=== PATIENT | male | born 1970 | race Caucasian/White ===

== ENCOUNTER 2023-08-08 11:03 | Inpatient (IN) ==
[2023-08-08 11:54] LABS: Basophils # (auto) 0.05 K/uL (0.00-0.20); Basophils % (auto) 0.6 %; Eosinophils # (auto) 0.19 K/uL (0.00-0.50); Eosinophils % (auto) 2.5 %; Hematocrit (blood only) 41.3 % (42.0-52.0); Hemoglobin 14.7 g/dl (14.0-18.0); Immature Granulocytes # (auto) 0.02 K/uL (0.01-0.20); Immature Granulocytes % (auto) 0.3 %; Lymphocytes # (auto) 1.62 K/uL (1.20-3.40); Mean Corpuscular Hemoglobin 31.6 pg (25.0-34.0); Mean Corpuscular Hgb Conc 35.6 g/dL (32.0-36.0); Mean Corpuscular Volume 88.8 fL (80.0-100.0); Mean Platelet Volume 10.8 fL (9.4-12.4); Monocytes # (auto) 0.67 K/uL (0.11-0.59); Monocytes % (auto) 8.7 %; Neutrophils # (auto) 5.16 K/uL (1.40-6.50); Neutrophils % (auto) 66.9 %; Platelet Count 229 K/uL (130-400); RDW Standard Deviation 38.7 fL (36.4-46.3); Red Blood Count 4.65 M/uL (4.70-6.10); White Blood Count 7.71 K/ul (4.8-10.8)
[2023-08-08 12:13] LABS: INR 0.9 (0.9-1.1); Partial Thromboplastin Ratio 0.9; Partial Thromboplastin Time 24.8 Seconds (21.0-31.0); Prothrombin Time 10.2 Seconds (9.0-12.0)
[2023-08-08 12:14] LABS: Alanine Aminotransferase 40 U/L (7-52); Albumin Globulin Ratio 1.6 (0.9-2); Albumin Level 4.5 gm/dl (3.4-5.0); Alkaline Phosphatase 74 U/L (34-104); Anion Gap 6 (3-11); Aspartate Aminotransferase 31 U/L (13-39); BUN Creatinine Ratio 18.8 (10-20); Bilirubin,Total 1.8 mg/dl (0.2-1.0); Blood Urea Nitrogen 16 mg/dl (6-23); Calcium 9.4 mg/dl (8.6-10.3); Carbon Dioxide 24 mmol/L (21-32); Chloride 105 mmol/L (98-107); Est GFR (African American) 113.7 ml/min; Est GFR (Non-African American) 98.1 ml/min; Globulin 2.9 gm/dl (2.5-4.0); Glucose 122 mg/dl (70-99(Fasting)); Lipase 69 U/L (11-82); Potassium 4.7 mmol/L (3.5-5.1); Sodium 135 mmol/L (136-145); Total Protein 7.4 gm/dl (6.0-8.3)
[2023-08-08 12:19] LABS: Troponin I High Sensitivity 6.7 pg/ml (0-20)
--- NOTE | 2023-08-08 13:04 | CT Scan Report ---
ABDOMEN AND PELVIS CT WITHOUT CONTRAST CT DOSE: 1112.58 mGy.cm HISTORY: mid abd pain, hx of umbilical hernia rep TECHNIQUE: Multiaxial CT images of the abdomen and pelvis were performed without contrast. A dose lo wering technique was utilized adhering to the principles of ALARA. COMPARISON STUDY: None. FINDINGS: There is a 3 mm nodule within the left lower lobe on image 45. The right lung base is clear . There are poststernotomy changes. Severe disc space narrowing at L5-S1. The unenhanced liver, splee n, pancreas, adrenal glands, and kidneys are unremarkable. No hydronephrosis. No retroperitoneal or p elvic lymphadenopathy. Mild calcified plaque within the normal caliber abdominal aorta. There is a 3 mm stone at the cystic duct on image 81. There is pericholecystic inflammatory change. Therefore, the se findings are consistent with an acute cholecystitis. Tiny fat-containing umbilical hernia. Minimal fat stranding deep to the umbilical hernia. This could be chronic or represent a developing small om ental infarct. Normal bladder. Suboptimal evaluation for bowel pathology due to the lack of intraveno us and oral contrast. However, there is no definite bowel wall thickening or obstruction. Normal appe ndix. IMPRESSION: 1. A 3 mm stone within the cystic duct with pericholecystic inflammatory change. Therefore, these fin dings are consistent with an acute cholecystitis. Surgical consultation recommended. 2. Minimal fat stranding deep to the tiny fat-containing umbilical hernia. This could be chronic or r epresent a developing small metal infarct. 3. No bowel wall thickening or obstruction. 4. Normal appendix. 5. A 3 mm indeterminate pulmonary nodule within the left lower lobe. Please refer to below summary of Fleischner criteria recommendations for follow-up of incidental CT n odules (Zeinab Clark, Guidelines for management of small pulmonary nodules detected on CT scans: A wan [place] from the Fleischner Society, Radiology 237: [phone].) SOLID NODULES Solitary nodule size: <6 mm * Low risk patients: no follow-up needed * high risk patients: optional CT at 12 months Solitary nodule size: 6-8 mm * Low risk patients: follow-up at 6-12 months, then consider further follow-up at 18-24 months * high risk patients: initial follow-up CT at 6-12 months and then at 18-24 months if no change Solitary nodule size: >8 mm * either low or high risk patients - consider follow-up CT at 3 months, and/or CT-PET, and/or biopsy Multiple nodules size: <6 mm * Low risk patients: no routine follow-up * high risk patients: optional CT at 12 months Multiple nodules size: 6-8 mm * Low risk patients: follow-up at 3-6 months, then consider further follow-up at 18-24 months * high risk patients: follow-up at 3-6 months, then at 18-24 months if no change Multiple nodules size: >8 mm * Low risk patients: follow-up at 3-6 months, then consider further follow-up at 18-24 months * high risk patients: follow-up at 3-6 months, then at 18-24 months if no change Note: newly detected indeterminate nodule in persons 35 years of age or older. * Low risk patients: minimal or absent history of smoking and/or other known risk factors * high risk patients: history of smoking or of other known risk factors (e.g. first degree relative with lung cancer, or exposure to asbestos, radon, uranium) * if a nodule up to 8 mm is partly solid or is ground glass further follow-up is required after 24 m onths to exclude possible slow growing adenocarcinoma (NIC) SUBSOLID NODULES Solitary pure ground-glass nodule * nodule size <6 mm - no CT follow-up required * nodule size >=6 mm - follow-up CT at 6-12 months, then every 2 years until 5 years Solitary part-solid nodule * nodule size <6 mm - no CT follow-up required * nodule size >=6 mm - follow-up CT at 3-6 months. If unchanged, and solid component remains <6 mm, then annual follow-up for 5 years Multiple subsolid nodules * nodule size <6 mm - follow-up CT at 3-6 months, consider further follow-up at 2 and 4 years if sta ble * nodule size >=6 mm - follow-up CT at 3-6 months, subsequent management based on the most suspiciou s nodule(s) ACT 112: Positive. There are findings on this exam that require communication between the performing entity and the patient following Patient Test Result Information Act ([place] Act 112) guidelines. Electronically signed by: Glenroy Chang M.D. 08/08/2023 1:02 PM
[2023-08-08] MEDS ORDERED: cefOXitin 2,000 MG/60 ML BAG IV STA (13:49)
[2023-08-08] MEDS ORDERED: SODIUM CHLORIDE 0.9% 500 ML IV ONE (13:49)
[2023-08-08] MEDS ORDERED: ONDANSETRON INJ 2 MG/ML 2 ML VIAL IV STA (13:49)
[2023-08-08] MEDS: HYDROmorphone INJ 0.5 MG/0.5 ML SYR IV PRN ×2 (13:59→15:50)
[2023-08-08] MEDS ORDERED: SODIUM CHLORIDE 0.9% 1,000 ML IV SCH (14:00)
--- NOTE | 2023-08-08 14:01 | XRay Report ---
XR chest 1V portable CLINICAL HISTORY: Chest pain, nonspecific COMPARISON STUDY: Chest radiograph March 12, 2013. FINDINGS: There are median sternotomy wires and mediastinal surgical clips. No pneumothorax or pleura l effusion is present. There is cardiomegaly without evidence for pulmonary edema. No consolidation i s identified to suggest pneumonia. IMPRESSION: No acute cardiopulmonary findings. ACT 112: Negative or not required by law. Electronically signed by: Presley Miranda M.D. 08/08/2023 2:00 PM
--- NOTE | 2023-08-08 15:54 | Electrocardiogram Report ---
Test Reason : Blood Pressure : / mmHG Vent. Rate : 052 BPM Atrial Rate : 052 BPM P-R Int : 166 ms QRS Dur : 096 ms QT Int : 442 ms P-R-T Axes : 058 070 080 degrees QTc Int : 411 ms Sinus bradycardia with occasional Premature ventricular complexes Poor R wave progression, consider anterior TX vs. lead placement vs. LVH Abnormal ECG When compared with ECG of 18-JUL-2001 14:53, Premature ventricular complexes are now Present Nonspecific T wave abnormality no longer evident in Inferior leads Confirmed by Cecilio Soliman ([id number]) on 08/08/2023 3:54:26 PM Referred By: Confirmed By:Cecilio Soliman
--- NOTE | 2023-08-08 15:55 | Emergency Department Note ---
Impression & Plan Acute cholecystitis, Calculus of cystic duct, Hypertension, Nodule of left lung ED Provider Note INFORMANT: Patient ED PROVIDER(S): Ajit Barreto MD CHIEF COMPLAINT: Abdominal pain PLAN: Disposition: Admitted Condition: Good Outpatient prescription management: none Referral: None MEDICAL DECISION MAKING: Patient presented because of abdominal pain. Work-up was initiated. Patient was found to have an unremarkable CBC and chemistry panel. He did have mild elevation of the bilirubin but the rest of the LFTs and lipase were normal. Patient's ECG did not show any acute ischemia. Troponin was negative. Patient underwent CT imaging and there was concerns for cholecystitis. Patient also had a pulmonary nodule and was informed of this. Was informed of need for repeat CT in 6 to 12 months. Patient was given Dilaudid, Zofran, and Mefoxin. His blood pressure initially was very high when he was in pain. After administration of IV narcotics he did have significant improvement of pain and his blood pressure did trend down significantly as well. Consultation was made with general surgery, Dr. Cosme. He did evaluate the patient in the emergency department. He did request medical admission due to the cardiac history. [facility] Case was discussed and diagnostics were reviewed. Patient was evaluated in the ER and admitted for further management. Discussed with retail cosmetics sales counter manager After review of the information above and other included data, I feel the patient requires admission. Triage Nursing notes reviewed and agree them. Vital Signs: reviewed and remarkable for hypertension Prior /Outside records reviewed: none Differential diagnosis: PUD, pancreatitis, biliary pathology, hernia, volvulus, Appendicitis, testicular torsion, infections, diverticulitis, UTI, obstruction, mesenteric ischemia, aortic pathology, inflammatory bowel disease, renal colic, constipation, as well as other pathologies. Diagnostics, as interpreted by me: ECG: Twelve-lead ECG was sinus bradycardia with PVCs at 52 bpm. Poor R wave progression. No ST elevation. Cardiac Monitoring: Cardiac monitoring ordered by me: The patient was placed on continuous cardiac monitoring and observed. It revealed a sinus bradycardia 57 bpm Medical decision rules: none Imaging studies: Chest x-ray. Findings: A chest x-ray was performed and revealed no pneumothorax, effusion, infiltrate, pulmonary edema, free air under the diaphragm, or wide mediastinum. Impression: No acute disease. CT scan of the abdomen pelvis is concerning for acute cholecystitis with cystic duct stone. Patient also has a left lower lobe pulmonary nodule. Patient was informed of the need for follow-up. HPI: The patient is a 53year old male who presents to the Emergency Room with complaints of abdominal pain. This started this morning at 10 AM and is in the upper aspect and radiating to his back. Whenever started it was near the umbilicus and radiated upward. No prior history of the same. The patient also notes the following associated symptoms, none. The patient has taken no medication for relieving factors. Current pain is rated as 7/10. Pt denies LOC, headache, fevers, chills, diaphoresis, visual changes, neck pain, chest pain, breathing difficulties, nausea, vomiting, melena, hematochezia, urinary symptoms, numbness, weakness, lymphadenopathy, rash, or other complaints. PAST MEDICAL HISTORY: See Below, CAD PAST SURGICAL HISTORY: See Below, CABG SOCIAL HISTORY: See Below, non-smoker HOME MEDICATIONS: See Below ALLERGIES: See Below VITALS: See Below PHYSICAL EXAMINATION: GENERAL: Awake, alert, uncomfortable-appearing, in no distress HENT: Normocephalic, atraumatic. Oropharynx unremarkable. EYES: Normal conjunctiva. Sclera non-icteric. NECK: Inspection normal. Non-tender. Supple. No nuchal rigidity. FROM. No masses. RESPIRATORY: Clear to auscultation. No wheezes. No rales. Normal respiratory effort. CARDIAC: Normal rate. Normal rhythm. No murmurs. No rubs. Extremities warm and well perfused. Pulses equal. No JVD. GI: Soft, non-distended. Right upper quadrant tenderness to palpation. No rebound or guarding. No masses. RECTAL: Deferred. MUSCULOSKELETAL: Atraumatic. Chest examination reveals no tenderness. The back is symmetrical on inspection without obvious abnormality. There is no CVA tenderness to palpation. No joint edema. LOWER EXTREMITIES: Calves are equal size bilaterally and non-tender. No edema. No discoloration. NEURO: Normal sensorium. No sensory or motor deficits noted. SKIN: No rash or jaundice noted. Past Med/Surg History Medical History Former heavy tobacco smoker Myocardial Infarction Surgical History History of cardiac cath History of coronary artery bypass graft Social History Smoking Status: Never smoker Second Hand Exposure: No; Do You Dip or Chew Tobacco: No; Hx Alcohol Use: Yes Alcohol type: beer Hx Substance Use: No Preferred Language: Slovak Current Living Situation: Family current occupation: Security system sales Feels Safe at Home: Yes Allergies Allergies Allergy/AdvReac Type Severity Reaction Status Date / Time No Known Allergies Allergy Unverified 03/12/13 17:14 Home Meds Home Medications Medication Instructions Recorded Confirmed aspirin 81 mg tablet,delayed 81 mg PO DAILY 08/08/23 08/08/23 release atorvastatin 80 mg tablet 80 mg PO HS 08/08/23 08/08/23 clopidogrel 75 mg tablet 75 mg PO DAILY 08/08/23 08/08/23 metformin 500 mg tablet 1,000 mg PO QAM 08/08/23 08/08/23 metformin 500 mg tablet 500 mg PO QPM 08/08/23 08/08/23 metoprolol tartrate 25 mg tablet 12.5 mg PO BID 08/08/23 08/08/23 Results & Data (ED) Vital Signs Vital Signs - 24 hr 08/08/23 11:09 08/08/23 11:12 08/08/23 13:03 Temperature 36.8 C Temperature Source Temporal Artery Scan Pulse Rate 56 L Pulse Rate [Right Finger] Pulse Rhythm [Right Finger] Pulse Strength [Right Finger] Respiratory Rate 20 Respiratory Effort / Characteristics Non-Labored Spontaneous Respiratory Depth Normal Respiratory Pattern Regular Blood Pressure 215/100 H Blood Pressure [Left Arm] Blood Pressure [Right Arm] 209/105 H Blood Pressure Mean 138 Blood Pressure Mean [Left Arm] Blood Pressure Mean [Right Arm] 139 Blood Pressure Position Sitting Blood Pressure Position [Left Arm] Pulse Oximetry 99 98 Oxygen Delivery Method Room Air Room Air Sepsis Recent Fever Within 48 Hours No Sepsis New/Unexplained Change in Mental Status No Sepsis Action Taken by Nursing No Action Required 08/08/23 15:08 08/08/23 15:30 Temperature Temperature Source Pulse Rate Pulse Rate [Right Finger] 56 L 57 L Pulse Rhythm [Right Finger] Regular Regular Pulse Strength [Right Finger] Normal Normal Respiratory Rate 20 16 Respiratory Effort / Characteristics Non-Labored Spontaneous Non-Labored Spontaneous Respiratory Depth Normal Normal Respiratory Pattern Regular Regular Blood Pressure Blood Pressure [Left Arm] 189/95 H 163/103 H Blood Pressure [Right Arm] Blood Pressure Mean Blood Pressure Mean [Left Arm] 126 123 Blood Pressure Mean [Right Arm] Blood Pressure Position Blood Pressure Position [Left Arm] Lying Lying Pulse Oximetry 99 98 Oxygen Delivery Method Room Air Room Air Sepsis Recent Fever Within 48 Hours Sepsis New/Unexplained Change in Mental Status Sepsis Action Taken by Nursing Laboratory Data 08/08/23 11:30 08/08/23 11:30 Lab Results 08/08/23 08/08/23 08/08/23 Range/Units 11:30 11:30 11:30 WBC 7.71 (4.8-10.8) K/ul RBC 4.65 L (4.70-6.10) M/uL Hgb 14.7 (14.0-18.0) g/dl Hct 41.3 L (42.0-52.0) % MCV 88.8 (80.0-100.0) fL MCH 31.6 (25.0-34.0) pg MCHC 35.6 (32.0-36.0) g/dL RDW Std Deviation 38.7 (36.4-46.3) fL RDW Coeff of Jimmy 12.0 (11.5-14.5) % Plt Count 229 (130-400) K/uL MPV 10.8 (9.4-12.4) fL Immature Gran % (Auto) 0.3 % Neut % (Auto) 66.9 % Lymph % (Auto) 21.0 % [place] % (Auto) 8.7 % Eos % (Auto) 2.5 % Baso % (Auto) 0.6 % Neut # (Auto) 5.16 (1.40-6.50) K/uL Lymph # (Auto) 1.62 (1.20-3.40) K/uL [place] # (Auto) 0.67 H (0.11-0.59) K/uL Eos # (Auto) 0.19 (0.00-0.50) K/uL Baso # (Auto) 0.05 (0.00-0.20) K/uL Immature Gran # (Auto) 0.02 (0.01-0.20) K/uL PT 10.2 (9.0-12.0) Seconds INR 0.9 (0.9-1.1) APTT 24.8 (21.0-31.0) Seconds PTT Ratio 0.9 Sodium 135 L (136-145) mmol/L Potassium 4.7 (3.5-5.1) mmol/L Chloride 105 (98-107) mmol/L Carbon Dioxide 24 (21-32) mmol/L Anion Gap 6 (3-11) BUN 16 (6-23) mg/dl Creatinine 0.85 (0.6-1.4) mg/dl Est Cr Clr Drug Dosing Not Reportable Est GFR ( Amer) 113.7 ml/min Est GFR (Non-Af Amer) 98.1 ml/min BUN/Creatinine Ratio 18.8 (10-20) Glucose 122 H (70-99(Fasting)) mg/dl Calcium 9.4 (8.6-10.3) mg/dl Total Bilirubin 1.8 H (0.2-1.0) mg/dl AST 31 (13-39) U/L ALT 40 (7-52) U/L Alkaline Phosphatase 74 (34-104) U/L Troponin I High Sens 6.7 (0-20) pg/ml Total Protein 7.4 (6.0-8.3) gm/dl Albumin 4.5 (3.4-5.0) gm/dl Globulin 2.9 (2.5-4.0) gm/dl Albumin/Globulin Ratio 1.6 (0.9-2) Lipase 69 (11-82) U/L Urine Color Urine Appearance (Clear) Urine pH (4.5-7.5) Ur Specific [place] (1.000-1.030) Urine Protein (Negative) Urine Glucose (UA) (Negative) Urine Ketones (Negative) Urine Blood (Negative) Urine Nitrite (Negative) Urine Bilirubin (Negative) Urine Urobilinogen (Negative) Ur Leukocyte Esterase (Negative) 08/08/23 Range/Units 16:10 WBC (4.8-10.8) K/ul RBC (4.70-6.10) M/uL Hgb (14.0-18.0) g/dl Hct (42.0-52.0) % MCV (80.0-100.0) fL MCH (25.0-34.0) pg MCHC (32.0-36.0) g/dL RDW Std Deviation (36.4-46.3) fL RDW Coeff of Jimmy (11.5-14.5) % Plt Count (130-400) K/uL MPV (9.4-12.4) fL Immature Gran % (Auto) % Neut % (Auto) % Lymph % (Auto) % [place] % (Auto) % Eos % (Auto) % Baso % (Auto) % Neut # (Auto) (1.40-6.50) K/uL Lymph # (Auto) (1.20-3.40) K/uL [place] # (Auto) (0.11-0.59) K/uL Eos # (Auto) (0.00-0.50) K/uL Baso # (Auto) (0.00-0.20) K/uL Immature Gran # (Auto) (0.01-0.20) K/uL PT (9.0-12.0) Seconds INR (0.9-1.1) APTT (21.0-31.0) Seconds PTT Ratio Sodium (136-145) mmol/L Potassium (3.5-5.1) mmol/L Chloride (98-107) mmol/L Carbon Dioxide (21-32) mmol/L Anion Gap (3-11) BUN (6-23) mg/dl Creatinine (0.6-1.4) mg/dl Est Cr Clr Drug Dosing Est GFR ( Amer) ml/min Est GFR (Non-Af Amer) ml/min BUN/Creatinine Ratio (10-20) Glucose (70-99(Fasting)) mg/dl Calcium (8.6-10.3) mg/dl Total Bilirubin (0.2-1.0) mg/dl AST (13-39) U/L ALT (7-52) U/L Alkaline Phosphatase (34-104) U/L Troponin I High Sens (0-20) pg/ml Total Protein (6.0-8.3) gm/dl Albumin (3.4-5.0) gm/dl Globulin (2.5-4.0) gm/dl Albumin/Globulin Ratio (0.9-2) Lipase (11-82) U/L Urine Color Dark Yellow Urine Appearance Clear (Clear) Urine pH 6.0 (4.5-7.5) Ur Specific [place] 1.024 (1.000-1.030) Urine Protein Negative (Negative) Urine Glucose (UA) Negative (Negative) Urine Ketones Negative (Negative) Urine Blood Negative (Negative) Urine Nitrite Negative (Negative) Urine Bilirubin Negative (Negative) Urine Urobilinogen Negative (Negative) Ur Leukocyte Esterase Negative (Negative) Administered Medications Sodium Chloride (Nss) 1,000 mls @ 125 mls/hr IV .Q8H TIM Stop: 09/07/23 13:59 Last Admin: 08/08/23 14:48 Dose: 125 mls/hr Documented By: MARY KAY Discontinued Medications Hydromorphone HCl (Hydromorphone Inj 0.5 Mg/0.5 Ml Syr) 0.5 mg IV Q15M PRN PRN Reason: Pain Stop: 08/22/23 13:48 Last Admin: 08/08/23 15:50 Dose: 0.5 mg Documented By: Admin: 08/08/23 13:59 Dose: 0.5 mg Documented By: AYAH Cefoxitin Sodium (Mefoxin) 2,000 mg in 60 mls @ 100 mls/hr IV NOW STA Stop: 08/08/23 14:24 Last Infusion: 08/08/23 14:48 Dose: 0 mls/hr Documented By: MARY KAY Admin: 08/08/23 13:59 Dose: 100 mls/hr Documented By: AYAH Sodium Chloride (Nss) 500 mls @ 999 mls/hr IV .Q31M ONE Stop: 08/08/23 14:19 Last Infusion: 08/08/23 14:48 Dose: 0 mls/hr Documented By: MARY KAY Admin: 08/08/23 13:59 Dose: 999 mls/hr Documented By: AYAH Ondansetron HCl (Ondansetron Inj 2 Mg/Ml 2 Ml Vial) 4 mg IV NOW STA Stop: 08/08/23 13:50 Last Admin: 08/08/23 13:59 Dose: 4 mg Documented By: AYAH Imaging Data Radiologist's Impression: Chest X-Ray 08/08/23 11:12 XR chest 1V portable CLINICAL HISTORY: Chest pain, nonspecific COMPARISON STUDY: Chest radiograph March 12, 2013. FINDINGS: There are median sternotomy wires and mediastinal surgical clips. No pneumothorax or pleural effusion is present. There is cardiomegaly without evidence for pulmonary edema. No consolidation is identified to suggest pneumonia. IMPRESSION: No acute cardiopulmonary findings. ACT 112: Negative or not required by law. Electronically signed by: Presley Miranda M.D. 08/08/2023 2:00 PM Abdomen/Pelvis CT 08/08/23 12:[address] WITHOUT CONTRAST CT DOSE: 1112.58 mGy.cm HISTORY: mid abd pain, hx of umbilical hernia rep TECHNIQUE: Multiaxial CT images of the abdomen and pelvis were performed without contrast. A dose lowering technique was utilized adhering to the principles of ALARA. COMPARISON STUDY: None. FINDINGS: There is a 3 mm nodule within the left lower lobe on image 45. The right lung base is clear. There are poststernotomy changes. Severe disc space narrowing at L5-S1. The unenhanced liver, spleen, pancreas, adrenal glands, and kidneys are unremarkable. No hydronephrosis. No retroperitoneal or pelvic lymphadenopathy. Mild calcified plaque within the normal caliber abdominal aorta. There is a 3 mm stone at the cystic duct on image 81. There is pericholecystic inflammatory change. Therefore, these findings are consistent with an acute cholecystitis. Tiny fat-containing umbilical hernia. Minimal fat stranding deep to the umbilical hernia. This could be chronic or represent a developing small omental infarct. Normal bladder. Suboptimal evaluation for bowel pathology due to the lack of intravenous and oral contrast. However, there is no definite bowel wall thickening or obstruction. Normal appendix. IMPRESSION: 1. A 3 mm stone within the cystic duct with pericholecystic inflammatory change. Therefore, these findings are consistent with an acute cholecystitis. Surgical consultation recommended. 2. Minimal fat stranding deep to the tiny fat-containing umbilical hernia. This could be chronic or represent a developing small metal infarct. 3. No bowel wall thickening or obstruction. 4. Normal appendix. 5. A 3 mm indeterminate pulmonary nodule within the left lower lobe. Please refer to below summary of Fleischner criteria recommendations for follow- up of incidental CT nodules (Zeinab Clark, Guidelines for management of small pulmonary nodules detected on CT scans: A statement from the Fleischner Society, Radiology 237: [phone].) SOLID NODULES Solitary nodule size: <6 mm * Low risk patients: no follow-up needed * high risk patients: optional CT at 12 months Solitary nodule size: 6-8 mm * Low risk patients: follow-up at 6-12 months, then consider further follow-up at 18-24 months * high risk patients: initial follow-up CT at 6-12 months and then at 18-24 months if no change Solitary nodule size: >8 mm * either low or high risk patients - consider follow-up CT at 3 months, and/or CT-PET, and/or biopsy Multiple nodules size: <6 mm * Low risk patients: no routine follow-up * high risk patients: optional CT at 12 months Multiple nodules size: 6-8 mm * Low risk patients: follow-up at 3-6 months, then consider further follow-up at 18-24 months * high risk patients: follow-up at 3-6 months, then at 18-24 months if no change Multiple nodules size: >8 mm * Low risk patients: follow-up at 3-6 months, then consider further follow-up at 18-24 months * high risk patients: follow-up at 3-6 months, then at 18-24 months if no change Note: newly detected indeterminate nodule in persons 35 years of age or older. * Low risk patients: minimal or absent history of smoking and/or other known risk factors * high risk patients: history of smoking or of other known risk factors (e.g. first degree relative with lung cancer, or exposure to asbestos, radon, uranium) * if a nodule up to 8 mm is partly solid or is ground glass further follow-up is required after 24 months to exclude possible slow growing adenocarcinoma (NIC) SUBSOLID NODULES Solitary pure ground-glass nodule * nodule size <6 mm - no CT follow-up required * nodule size >=6 mm - follow-up CT at 6-12 months, then every 2 years until 5 years Solitary part-solid nodule * nodule size <6 mm - no CT follow-up required * nodule size >=6 mm - follow-up CT at 3-6 months. If unchanged, and solid component remains <6 mm, then annual follow-up for 5 years Multiple subsolid nodules * nodule size <6 mm - follow-up CT at 3-6 months, consider further follow-up at 2 and 4 years if stable * nodule size >=6 mm - follow-up CT at 3-6 months, subsequent management based on the most suspicious nodule(s) ACT 112: Positive. There are findings on this exam that require communication between the performing entity and the patient following Patient Test Result Information Act ([place] Act 112) guidelines. Electronically signed by: Glenroy Chang M.D. 08/08/2023 1:02 PM Discharge Plan Visit Data Chief Complaint: Abdominal Pain Stated Complaint: SEVERE ABD PAIN ED Provider: Ajit Barreto Discharge Problem: Acute cholecystitis, Calculus of cystic duct, Hypertension, Nodule of left lung Forms Stand Alone Forms: My [facility] Prescriptions Prescriptions: No Action metformin 500 mg tablet 1,000 mg PO QAM atorvastatin 80 mg tablet 80 mg PO HS clopidogrel 75 mg tablet 75 mg PO DAILY metoprolol tartrate 25 mg tablet 12.5 mg PO BID metformin 500 mg Tablet 500 mg PO QPM aspirin 81 mg Tablet,Delayed Release (Dr/Ec) 81 mg PO DAILY Referrals Referrals: Ced Foote MD [Primary Care Provider] -
--- NOTE | 2023-08-08 16:02 | History & Physical Report ---
Date of Service August 08, 2023 Assessment & Plan (1) Acute cholecystitis: Plan: - Admit to med surg with tele - CT abd reviewed showing acute kayley as above - BCx x2 - Continue on cefoxitin IV - Pain control has significantly improved pt pain and his BP has trended downward without any antihypertensive medications. - Consult general surgery - CXR is without acute findings, EKG is without acute abnormalities and no signs of ischemia. no previous ekg to compare to. (2) Hypertension: (3) CAD (coronary artery disease) of artery bypass graft: (4) S/P CABG x 4: (5) HLD (hyperlipidemia): Plan: - Significant cadiac hx s/p IL and CABG x 4 in Nov 2022- Have requested records from [facility] from previous hospitalization Nov 2022 as above. - Followed with Dr. Wilkinson for surgery and sees Dr. Kiran Stoner with cardiology and was last seen there approximately 1 month ago. - EKG today without any acute abnormalities, obtain repeat EKG with am - Pt without any cardiac symptoms today. Troponin is negative. - Holding plavix with possible surgical procedure in the morning - Continue baby aspirin - Pt stopped smoking in Nov at time of his heart attack - pt still smokes marijuana on Monday evenings, drinks alcohol on Fridays, pt reports a pack of beer while he is fishing on Monday nights - encourage limitation of alcohol and marijuana use throughout hospital stay and upon discharge. - Consult cardiology for risk/benefit of procedure. Ultimately if the patient requires surgical procedure due to sepsis and benefits of surgical procedure would outweigh the risk. (6) DM II (diabetes mellitus, type II), controlled: Plan: - Check A1C and lipids with am lab - Hold home metformin and will use ISS with accuchecks achs - Diet and exercise discussed at bedside - encouraged pt to participate in 20 minutes of cardiac activity 3 times per week, as well as strength training twice per week DVT ppx: teds, scds, no chemical ppx in the setting of possible cholecystectomy tomorrow FEN/GI: Allow clear liquid diet now, n.p.o. at midnight Lines: 2 PIV Code: Full code Dispo: Patient from home, lives with and 4 children, admitted to the hospital for possible cholecystectomy tomorrow morning per general surgery History of Present Illness Primary Care Provider: Ced Foote MD This is a 53 male with PMHx of CAD status post CABG x4, ischemic cardiomyopathy, history of NSTEMI in November 2022, HLD, HTN, former cigarette smoker quit in November 2022, DM type II, who presents to the hospital with acute onset of abdominal pain. Patient states that this started around 10 AM this morning. He had eaten a banana, coffee for breakfast this morning and felt pain initially in his lower abdomen extending up and going straight into his back. He had 1 bowel movement this morning which was normal, no blood and thought the pain would be relieved however it was not. Denies any fevers, chills or sweats. Due to progressive pain worsening to an 8/10 he proceeded to the ER. He reports taking his morning medications as regularly scheduled. Patient admits that he currently smokes marijuana but only on Monday evenings when he enjoys an alcoholic beverage or 2 and fishes for rivers. His is with him at bedside and supports the history. Now since being here his blood pressure which was initially elevated at 215/100 has come down to 160/90 with pain control and fluids. In regards to cardiac history: Patient underwent CABG x4 at [facility] in [facility] December 07, 2022, follows with Dr. Wilkinson for surgery and sees Dr. Kiran Stoner with cardiology and was last seen there approximately 1 month ago. He has been stable on baby aspirin, Plavix, atorvastatin, and low-dose metoprolol 12.5 twice daily. Due to heart rate in the 50s they have been unable to titrate beta- blockade up. Patient is fairly physically active but does not exercise routinely. He reports that prior to procedure he was not a diabetic and that his A1c at the time of that hospital stay were normal. Since then him has been placed on metformin 1000 in the morning and 500 in the evening. The evening dose was decreased due to increased diarrhea and loose bowel movements. Patient states he is tolerating this dose well and without any GI effects. CT of the abdomen pelvis shows 3 mm obstructing stone within the cystic duct and pericholecystic inflammatory change, concerning for acute cholecystitis. General surgery has been consulted and has requested medical admission for operative clearance. Allergies Allergy/AdvReac Type Severity Reaction Status Date / Time No Known Allergies Allergy Unverified 03/12/13 17:14 Home Medications Medication Instructions Recorded Confirmed Type aspirin 81 mg tablet,delayed 81 mg PO DAILY 08/08/23 08/08/23 History release atorvastatin 80 mg tablet 80 mg PO HS 08/08/23 08/08/23 History clopidogrel 75 mg tablet 75 mg PO DAILY 08/08/23 08/08/23 History metformin 500 mg tablet 1,000 mg PO QAM 08/08/23 08/08/23 History metformin 500 mg tablet 500 mg PO QPM 08/08/23 08/08/23 History metoprolol tartrate 25 mg tablet 12.5 mg PO BID 08/08/23 08/08/23 History Past Med/Surg History Medical History Former heavy tobacco smoker Myocardial Infarction Surgical History History of cardiac cath History of coronary artery bypass graft Social History Smoking Status: Former smoker Second Hand Exposure: No; Do You Dip or Chew Tobacco: No; Tobacco Cessation Education Requested by Patient: No Hx Alcohol Use: Yes Alcohol type: beer Hx Substance Use: Yes Last Used Substance: Days (ago) Last Used Substance Other:: x1 a week on fridays Preferred Language: Urdu Communication Ability: Effective Flamer Sealer Required: No Beliefs That Will Affect Care: None Current Living Situation: Alone current occupation: Security system sales Other Information That Helps Us Care for You: No Feels Safe at Home: Yes Safety Concerns: Feels Safe At This Time Assistive Devices: Glasses Review of Systems Review of Systems: Constitutional: No fever, sweats or chills Eyes: No diplopia, no worsening or blurred vision ENT: normal hearing, no trouble swallowing Respiratory: No cough, sputum, dyspnea at rest or on exertion Cardiovascular: No chest pain, tightness or palpitations Abdomen: As per HPI, currently no abdominal pain with IV Dilaudid on board Musculoskeletal: No joint pain, calf pain, swelling Neurologic: No weakness, numbness/tingling, or balance problems Psychiatric: No anxiety or depression Skin: No rash or itch Physical Exam Physical Exam: General: awake, alert, no apparent distress, + jovial white male Head: Normocephalic, atraumatic ENT: PERRL, EOMI, no pharyngeal exudate, mucous membranes moist Chest: Clear to auscultation, on room air, no adventitious breath sounds Cardiac: Slightly bradycardic with heart rate in the 50s throughout, no murmur, no JVD, normal peripheral pulses, good capillary refill, left leg saphenous grafting is well-healed Abdominal: NABS x 4 quadrants, soft, nondistended, nontender to palpation, no rebound or guarding Extremities: Normal inspection, no peripheral edema or erythema, calfs nontender to palpation Psych: Normal mood and affect Neuro: AAO x 3, strength intact bilaterally and rated 5/5, no motor deficits, speech is clear, no peripheral sensory deficits Results & Data Results & Data Vital Signs (Past 12 Hours) Vital Signs Temp Pulse Pulse Resp BP BP BP 08/08/23 15:08 56 L 20 189/95 H 08/08/23 13:03 209/105 H 08/08/23 11:12 08/08/23 11:09 36.8 C 56 L 20 215/100 H Pulse Ox O2 Del Method 08/08/23 15:08 99 Room Air 08/08/23 13:03 08/08/23 11:12 98 Room Air 08/08/23 11:09 99 Room Air Laboratory Results 08/08/23 08/08/23 08/08/23 11:30 11:30 11:30 WBC 7.71 RBC 4.65 L Hgb 14.7 Hct 41.3 L MCV 88.8 MCH 31.6 MCHC 35.6 RDW Std Deviation 38.7 RDW Coeff of Jimmy 12.0 Plt Count 229 MPV 10.8 Immature Gran % (Auto) 0.3 Neut % (Auto) 66.9 Lymph % (Auto) 21.0 [place] % (Auto) 8.7 Eos % (Auto) 2.5 Baso % (Auto) 0.6 Neut # (Auto) 5.16 Lymph # (Auto) 1.62 [place] # (Auto) 0.67 H Eos # (Auto) 0.19 Baso # (Auto) 0.05 Immature Gran # (Auto) 0.02 PT 10.2 INR 0.9 APTT 24.8 PTT Ratio 0.9 Sodium 135 L Potassium 4.7 Chloride 105 Carbon Dioxide 24 Anion Gap 6 BUN 16 Creatinine 0.85 Est Cr Clr Drug Dosing Not Reportable Est GFR ( Amer) 113.7 Est GFR (Non-Af Amer) 98.1 BUN/Creatinine Ratio 18.8 Glucose 122 H Calcium 9.4 Total Bilirubin 1.8 H AST 31 ALT 40 Alkaline Phosphatase 74 Troponin I High Sens 6.7 Total Protein 7.4 Albumin 4.5 Globulin 2.9 Albumin/Globulin Ratio 1.6 Lipase 69 Diagnostic Findings Chest X-Ray 08/08/23 11:12 XR chest 1V portable CLINICAL HISTORY: Chest pain, nonspecific COMPARISON STUDY: Chest radiograph March 12, 2013. FINDINGS: There are median sternotomy wires and mediastinal surgical clips. No pneumothorax or pleural effusion is present. There is cardiomegaly without evidence for pulmonary edema. No consolidation is identified to suggest pneumonia. IMPRESSION: No acute cardiopulmonary findings. ACT 112: Negative or not required by law. Electronically signed by: Presley Miranda M.D. 08/08/2023 2:00 PM Abdomen/Pelvis CT 08/08/23 12:[address] WITHOUT CONTRAST CT DOSE: 1112.58 mGy.cm HISTORY: mid abd pain, hx of umbilical hernia rep TECHNIQUE: Multiaxial CT images of the abdomen and pelvis were performed without contrast. A dose lowering technique was utilized adhering to the principles of ALARA. COMPARISON STUDY: None. FINDINGS: There is a 3 mm nodule within the left lower lobe on image 45. The right lung base is clear. There are poststernotomy changes. Severe disc space narrowing at L5-S1. The unenhanced liver, spleen, pancreas, adrenal glands, and kidneys are unremarkable. No hydronephrosis. No retroperitoneal or pelvic lymphadenopathy. Mild calcified plaque within the normal caliber abdominal aorta. There is a 3 mm stone at the cystic duct on image 81. There is pericholecystic inflammatory change. Therefore, these findings are consistent with an acute cholecystitis. Tiny fat-containing umbilical hernia. Minimal fat stranding deep to the umbilical hernia. This could be chronic or represent a developing small omental infarct. Normal bladder. Suboptimal evaluation for bowel pathology due to the lack of intravenous and oral contrast. However, there is no definite bowel wall thickening or obstruction. Normal appendix. IMPRESSION: 1. A 3 mm stone within the cystic duct with pericholecystic inflammatory change. Therefore, these findings are consistent with an acute cholecystitis. Surgical consultation recommended. 2. Minimal fat stranding deep to the tiny fat-containing umbilical hernia. This could be chronic or represent a developing small metal infarct. 3. No bowel wall thickening or obstruction. 4. Normal appendix. 5. A 3 mm indeterminate pulmonary nodule within the left lower lobe. Please refer to below summary of Fleischner criteria recommendations for follow- up of incidental CT nodules (Zeinab Clark, Guidelines for management of small pulmonary nodules detected on CT scans: A statement from the Fleischner Society, Radiology 237: [id number].) SOLID NODULES Solitary nodule size: <6 mm * Low risk patients: no follow-up needed * high risk patients: optional CT at 12 months Solitary nodule size: 6-8 mm * Low risk patients: follow-up at 6-12 months, then consider further follow-up at 18-24 months * high risk patients: initial follow-up CT at 6-12 months and then at 18-24 months if no change Solitary nodule size: >8 mm * either low or high risk patients - consider follow-up CT at 3 months, and/or CT-PET, and/or biopsy Multiple nodules size: <6 mm * Low risk patients: no routine follow-up * high risk patients: optional CT at 12 months Multiple nodules size: 6-8 mm * Low risk patients: follow-up at 3-6 months, then consider further follow-up at 18-24 months * high risk patients: follow-up at 3-6 months, then at 18-24 months if no change Multiple nodules size: >8 mm * Low risk patients: follow-up at 3-6 months, then consider further follow-up at 18-24 months * high risk patients: follow-up at 3-6 months, then at 18-24 months if no change Note: newly detected indeterminate nodule in persons 35 years of age or older. * Low risk patients: minimal or absent history of smoking and/or other known risk factors * high risk patients: history of smoking or of other known risk factors (e.g. first degree relative with lung cancer, or exposure to asbestos, radon, uranium) * if a nodule up to 8 mm is partly solid or is ground glass further follow-up is required after 24 months to exclude possible slow growing adenocarcinoma ( NIC) SUBSOLID NODULES Solitary pure ground-glass nodule * nodule size <6 mm - no CT follow-up required * nodule size >=6 mm - follow-up CT at 6-12 months, then every 2 years until 5 years Solitary part-solid nodule * nodule size <6 mm - no CT follow-up required * nodule size >=6 mm - follow-up CT at 3-6 months. If unchanged, and solid component remains <6 mm, then annual follow-up for 5 years Multiple subsolid nodules * nodule size <6 mm - follow-up CT at 3-6 months, consider further follow-up at 2 and 4 years if stable * nodule size >=6 mm - follow-up CT at 3-6 months, subsequent management based on the most suspicious nodule(s) ACT 112: Positive. There are findings on this exam that require communication between the performing entity and the patient following Patient Test Result Information Act ([place] Act 112) guidelines. Electronically signed by: Glenroy Chang M.D. 08/08/2023 1:02 PM ECG Additional Comments: 08-AUG-2023 11:18:04 [facility]-EDSTAT ROUTINE RETRIEVAL Sinus bradycardia with occasional Premature ventricular complexes Poor R wave progression, consider an terior IL vs. lead placement vs. LVH Abnormal ECG When compared with ECG of 18-JUL-2001 14:53, Premature ventricular complexes are now Present Nonspecific T wave abnormality no longer evident in Inferior leads Confirmed by Cecilio Soliman ([id number]) on 08/08/2023 3:54:26 PM 25mm/s10mm/[id number] 243CID: 19Confirmed By: Cecilio Muñoz. rate 52 BPM [place] interval 166 ms QRS duration 96 ms QT/QTc 442/411 ms Code Status & VTE Plan Code Status Full code-discussed with patient at bedside Supervising Physician Co-Signing Physician Notes Pt seen and examined by myself, Ashli Whitney MD on the day of service. Care was coordinated with Piedad Londono PA-C. 53yoM s/p CABG in Nov 2022 with noted acute cholecystitis on CT abd/pelvis. General surgery consult- recommending conservative treatment in setting of cardiac Hx with IV fluids and IV abx. ED started on IV cefoxitin, will switch to IV Zosyn. Continue IV fluids, pain control. Otherwise as above.
--- NOTE | 2023-08-08 16:20 | Surgery Consultation ---
Date of Consultation August 08, 2023 Assessment & Plan (1) Acute cholecystitis: (2) S/P CABG x 4: (3) DM II (diabetes mellitus, type II), controlled: Plan 53-year-old gentleman, CABG x4 8 months ago, on Plavix, presents with what appears to be acute cholecystitis on CT scan. He states that his pain has significantly improved since receiving pain medicine. We a long discussion about treatment for cholecystitis. We discussed his significant heart history. Surgery within 12 months of a CABG procedure is not recommended due to the high risk of cardiac events following the surgery from the general anesthesia. At this point, we will admit him to the hospital, place him on IV fluids and IV antibiotics. We will follow his exam, vitals, and labs. We will stop the Plavix currently, in case he needs urgent surgical management. We will try to treat him with conservative measures for now. All his questions were answered and he is agreeable with this plan. History of Present Illness Reason for Consultation: Biliary colic/acute cholecystitis Requesting Physician: Ajit Rodgers MD Attending Physician: Ajit Rodgers MD History of Present Illness 53-year-old gentleman with a past medical history of acute MA with CABG x4 in November 2022 presents with a 5-hour history of right upper quadrant abdominal pain. He states began his lower abdomen and slowly beto to the level of his epigastric region and right upper quadrant. It then radiated into his back. He denies nausea or vomiting. He denies fevers or chills. He has never had pain like this in the past. He last ate yesterday. He has been having normal bowel movements. He is on Plavix. Allergies Allergy/AdvReac Type Severity Reaction Status Date / Time No Known Allergies Allergy Unverified 03/12/13 17:14 Home Medications Medication Instructions Recorded Confirmed Type atorvastatin 80 mg tablet 80 mg PO HS 08/08/23 08/08/23 History clopidogrel 75 mg tablet 75 mg PO DAILY 08/08/23 08/08/23 History metformin 500 mg tablet 1,000 mg PO BID 08/08/23 08/08/23 History metoprolol tartrate 25 mg tablet 12.5 mg PO BID 08/08/23 08/08/23 History Patient History Medical History Former heavy tobacco smoker Myocardial Infarction Surgical History History of cardiac cath History of coronary artery bypass graft Social History Smoking Status: Never smoker Second Hand Exposure: No; Do You Dip or Chew Tobacco: No; Hx Alcohol Use: Yes Alcohol type: beer Hx Substance Use: No Preferred Language: Amharic Current Living Situation: Family 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 Feels Safe at Home: Yes Review of Systems Review of Systems: All systems reviewed & are unremarkable except as noted in HPI & below Physical Exam Constitutional: WD/WN, vitals as above Eyes: PERRL, conjunctivae normal, anicteric sclerae Neck: trachea midline, no thyromegaly Respiratory: normal respiratory effort; no respiratory distress and no labored breathing Cardiovascular: Rate/Rhythm: regular rate and regular rhythm Gastrointestinal (Abdomen): Inspection/Auscultation: abdomen normal to inspection; abdomen not distended Percussion/Palpation: + abdomen tender (Mild TTP in RUQ) and abdomen soft; no guarding and abdomen not rigid Skin: no rashes, warm and dry Psychiatric: A+Ox3, euthymic affect Results & Data Vital Signs (Past 12 Hours) Vital Signs Temp Pulse Pulse Resp BP BP BP 08/08/23 15:08 56 L 20 189/95 H 08/08/23 13:03 209/105 H 08/08/23 11:12 08/08/23 11:09 36.8 C 56 L 20 215/100 H Pulse Ox O2 Del Method 08/08/23 15:08 99 Room Air 08/08/23 13:03 08/08/23 11:12 98 Room Air 08/08/23 11:09 99 Room Air Laboratory Results 08/08/23 08/08/23 08/08/23 Range/Units 11:30 11:30 11:30 WBC 7.71 (4.8-10.8) K/ul RBC 4.65 L (4.70-6.10) M/uL Hgb 14.7 (14.0-18.0) g/dl Hct 41.3 L (42.0-52.0) % MCV 88.8 (80.0-100.0) fL MCH 31.6 (25.0-34.0) pg MCHC 35.6 (32.0-36.0) g/dL RDW Std Deviation 38.7 (36.4-46.3) fL RDW Coeff of Jimmy 12.0 (11.5-14.5) % Plt Count 229 (130-400) K/uL MPV 10.8 (9.4-12.4) fL Immature Gran % (Auto) 0.3 % Neut % (Auto) 66.9 % Lymph % (Auto) 21.0 % [place] % (Auto) 8.7 % Eos % (Auto) 2.5 % Baso % (Auto) 0.6 % Neut # (Auto) 5.16 (1.40-6.50) K/uL Lymph # (Auto) 1.62 (1.20-3.40) K/uL [place] # (Auto) 0.67 H (0.11-0.59) K/uL Eos # (Auto) 0.19 (0.00-0.50) K/uL Baso # (Auto) 0.05 (0.00-0.20) K/uL Immature Gran # (Auto) 0.02 (0.01-0.20) K/uL PT 10.2 (9.0-12.0) Seconds INR 0.9 (0.9-1.1) APTT 24.8 (21.0-31.0) Seconds PTT Ratio 0.9 Sodium 135 L (136-145) mmol/L Potassium 4.7 (3.5-5.1) mmol/L Chloride 105 (98-107) mmol/L Carbon Dioxide 24 (21-32) mmol/L Anion Gap 6 (3-11) BUN 16 (6-23) mg/dl Creatinine 0.85 (0.6-1.4) mg/dl Est Cr Clr Drug Dosing Not Reportable Est GFR ( Amer) 113.7 ml/min Est GFR (Non-Af Amer) 98.1 ml/min BUN/Creatinine Ratio 18.8 (10-20) Glucose 122 H (70-99(Fasting)) mg/dl Calcium 9.4 (8.6-10.3) mg/dl Total Bilirubin 1.8 H (0.2-1.0) mg/dl AST 31 (13-39) U/L ALT 40 (7-52) U/L Alkaline Phosphatase 74 (34-104) U/L Troponin I High Sens 6.7 (0-20) pg/ml Total Protein 7.4 (6.0-8.3) gm/dl Albumin 4.5 (3.4-5.0) gm/dl Globulin 2.9 (2.5-4.0) gm/dl Albumin/Globulin Ratio 1.6 (0.9-2) Lipase 69 (11-82) U/L
[2023-08-08 16:37] LABS: Appearance Urine Clear (Clear); Bilirubin Urine Negative (Negative); Blood Urine Negative (Negative); Color Urine Dark Yellow; Glucose Urine UA Negative (Negative); Ketones Urine Negative (Negative); Leukocyte Esterase Urine Negative (Negative); Nitrite Urine Negative (Negative); Protein Urine Negative (Negative); Specific Gravity Urine 1.024 (1.000-1.030); Urobilinogen Urine Negative (Negative)
[2023-08-08] MEDS ORDERED: POLYETHYLENE (MIRALAX) 17 GM PACK PO PRN (16:39)
[2023-08-08] MEDS ORDERED: HYDROmorphone INJ 0.5 MG/0.5 ML SYR IV PRN (16:39)
[2023-08-08] MEDS ORDERED: LACTATED RINGER'S 1,000 ML IV SCH ×2 (16:45→23:59)
[2023-08-08] MEDS ORDERED: CARBOHYDRATES FOR HYPOGLYCEMIA PO PRN (19:33)
[2023-08-08] MEDS ORDERED: GLUCAGON FOR INJ 1 MG VIAL SQ PRN (19:33)
[2023-08-08] MEDS ORDERED: DEXTROSE 50% 50 ML SYRINGE IV PRN (19:33)
[2023-08-08] MEDS ORDERED: GLUCOSE 40% GEL 15 GM TUBE PO PRN (19:33)
[2023-08-08] MEDS ORDERED: GLUCOSE 10 TAB/TUBE PO PRN (19:33)
[2023-08-08] MEDS: INSULIN ASPART PER UNIT CHARGE SC SCH (20:34)
[2023-08-08] MEDS: ATORVASTATIN 40 MG TAB PO SCH (21:02)
[2023-08-08] MEDS: METOPROLOL TARTRATE 25 MG TAB PO SCH (21:02)
[2023-08-08] MEDS: cefOXitin 2,000 MG in DEXTROSE 5% 50 ML IV SCH (23:42)
[2023-08-09] MEDS: cefOXitin 2,000 MG in DEXTROSE 5% 50 ML IV SCH (06:08)
[2023-08-09 07:02] LABS: Hematocrit (blood only) 38.1 % (42.0-52.0); Hemoglobin 13.6 g/dl (14.0-18.0); Mean Corpuscular Hemoglobin 31.7 pg (25.0-34.0); Mean Corpuscular Hgb Conc 35.7 g/dL (32.0-36.0); Mean Corpuscular Volume 88.8 fL (80.0-100.0); Platelet Count 194 K/uL (130-400); RDW Standard Deviation 38.4 fL (36.4-46.3); Red Blood Count 4.29 M/uL (4.70-6.10); White Blood Count 4.96 K/ul (4.8-10.8)
[2023-08-09 07:21] LABS: BUN Creatinine Ratio 14.8 (10-20); Calcium 8.8 mg/dl (8.6-10.3); Chol HDL Ratio 2.7 (0-5); Creatinine Clr Calc Pharmacy 101.7 ml/min; Est GFR (Non-African American) 100.1 ml/min; Potassium 4.2 mmol/L (3.5-5.1)
[2023-08-09 07:31] LABS: Estimated Average Glucose 128 mg/dl; Hemoglobin A1C 6.1 % (4.5-5.6)
--- NOTE | 2023-08-09 07:38 | Hospitalist Progress Note ---
Date of Service August 09, 2023 Assessment & Plan (1) Acute cholecystitis: (2) Hypertension: (3) CAD (coronary artery disease) of artery bypass graft: (4) S/P CABG x 4: (5) HLD (hyperlipidemia): (6) DM II (diabetes mellitus, type II), controlled: Plan Mr. López Marinelli is a 53 year old gentleman with past medical history remarkable for diabetes, hypertension, multivessel obstructive CAD s/p CABG who is admitted due acute gallstone cholecystitis. Patient reports no history of symptoms previously, stating this occurred in a matter of hours. GI recommended MRCP, patient declined this am. Surgery monitoring closely to determine surgical management vs continued conservative management. Patient remains stable and eager for diet advancement #Acute gallstone cholecystitis #Transaminitis -Continue to monitor on medsurg with tele -Continue on cefoxitin IV, plan to transition to po if diet tolerated and per surgery -Gi on consult, recommended MRCP, patient declined -Surgery on consult, appreciate further recommendations -Low fat diet, reassess for symptoms with plans for NPO at midnight for reevaluation -Trend LFTs #Multivessel CAD s/p CABG 2022 #HTN #HLD - Significant cadiac hx s/p ME and CABG x 4 in Nov 2022- Have requested records from [facility] from previous hospitalization Nov 2022 as above. - Followed with Dr. Wilkinson for surgery and sees Dr. Kiran Stoner with cardiology and was last seen there approximately 1 month ago. - EKG stable - Resume plavix when able, continue asa #Diabetes Mellitus Type II - Check A1C and lipids with am lab - Hold home metformin and will use ISS with accuchecks achs DVT ppx: teds, scds, no chemical ppx, encouraged ambulation FEN/GI: low fat diet Lines: 2 PIV Code: Full code Dispo: Patient from home, lives with and 4 children Likely discharge 08/10 contingent on surgery recommendations Admission and Anticipated Discharge Date Admission Date: August 08, 2023 Subjective Patient evaluated at bedside Patient states that he does not have any symptoms and he feel much better since 8pm Patient denies any active abdominal pain, nausea, vomiting, or other acute concerns Review of Systems Review of Systems: All systems reviewed & are unremarkable except as noted in Subjective Physical Exam Constitutional: WD/WN, vitals as above Respiratory: normal respiratory effort, lungs clear to auscultation Cardiovascular: RRR, no murmur, no edema Gastrointestinal (Abdomen): normal bowel sounds, soft, nontender, no hepatosplenomegaly Musculoskeletal: no cyanosis or clubbing, extremities motor strength 5/5 Results & Data Results & Data Vital Signs (Past 12 Hours) Vital Signs Temp Pulse Pulse Resp BP BP Pulse Ox 08/09/23 04:16 72 08/09/23 04:08 36.6 C 61 18 123/77 95 08/09/23 03:30 65 12 08/09/23 03:00 61 14 08/09/23 02:30 59 L 14 08/09/23 02:00 60 16 08/09/23 01:30 61 16 08/09/23 01:00 56 L 12 08/09/23 00:30 48 L 11 L 08/09/23 00:00 51 L 20 08/08/23 23:40 137/93 08/08/23 23:40 47 L 12 96 08/08/23 23:30 60 18 08/08/23 23:00 50 L 13 08/08/23 22:30 60 18 08/08/23 22:13 54 L 14 08/08/23 22:12 57 L O2 Del Method 08/09/23 04:16 08/09/23 04:08 Room Air 08/09/23 03:30 08/09/23 03:00 08/09/23 02:30 08/09/23 02:00 08/09/23 01:30 08/09/23 01:00 08/09/23 00:30 08/09/23 00:00 08/08/23 23:40 08/08/23 23:40 08/08/23 23:30 08/08/23 23:00 08/08/23 22:30 08/08/23 22:13 08/08/23 22:12 Laboratory Results Short CBC 08/09/23 Range/Units 06:07 WBC 4.96 (4.8-10.8) K/ul Hgb 13.6 L (14.0-18.0) g/dl Hct 38.1 L (42.0-52.0) % Plt Count 194 (130-400) K/uL BMP 08/09/23 06:07 Sodium 139 Potassium 4.2 Chloride 107 Carbon Dioxide 27 BUN 12 Creatinine 0.81 Glucose 106 H Calcium 8.8 Liver Function 08/09/23 Range/Units 06:07 Total Bilirubin 2.3 H (0.2-1.0) mg/dl Direct Bilirubin 0.4 H (0-0.2) mg/dl AST 24 (13-39) U/L ALT 34 (7-52) U/L Alkaline Phosphatase 57 (34-104) U/L Albumin 3.8 (3.4-5.0) gm/dl Urine 08/08/23 Range/Units 16:10 Urine Color Dark Yellow Urine Appearance Clear (Clear) Urine pH 6.0 (4.5-7.5) Ur Specific [place] 1.024 (1.000-1.030) Urine Protein Negative (Negative) Urine Glucose (UA) Negative (Negative) Diagnostic Findings No new data for review Medications Administered Home Medications Medication Instructions Recorded Confirmed Last Taken aspirin 81 mg tablet,delayed 81 mg PO DAILY 08/08/23 08/08/23 Unknown release atorvastatin 80 mg tablet 80 mg PO HS 08/08/23 08/08/23 Unknown clopidogrel 75 mg tablet 75 mg PO DAILY 08/08/23 08/08/23 Unknown metformin 500 mg tablet 1,000 mg PO QAM 08/08/23 08/08/23 Unknown metformin 500 mg tablet 500 mg PO QPM 08/08/23 08/08/23 Unknown metoprolol tartrate 25 mg tablet 12.5 mg PO BID 08/08/23 08/08/23 Unknown Active Medications Generic Name Dose Route Start Last Admin Trade Name Sajan PRN Reason Stop Dose Admin Aspirin 81 mg 08/09/23 09:00 08/09/23 10:30 Aspirin 81 Mg Ectab PO 09/08/23 08:59 81 mg DAILY TIM Administration Atorvastatin Calcium 80 mg 08/08/23 21:00 08/08/23 21:02 Atorvastatin 40 Mg Tab PO 09/07/23 20:59 80 mg HS TIM Administration Bisacodyl 5 mg 08/09/23 09:00 08/09/23 08:57 Bisacodyl 5 Mg Tabec PO 09/08/23 08:59 Not Given DAILY TIM Piperacillin Sod/Tazobactam 100 mls @ 25 mls/hr 08/09/23 14:00 08/09/23 14:44 Sod 4.5 gm/ Dextrose IV 08/19/23 12:59 25 mls/hr Q8H TIM Administration Protocol Insulin Aspart 0 units 08/08/23 21:00 08/09/23 12:32 Insulin Aspart Per Unit Charge SC 09/07/23 20:59 Not Given ACHS TIM Metoprolol Tartrate 12.5 mg 08/08/23 21:00 08/09/23 10:29 Metoprolol Tartrate 25 Mg Tab PO 09/07/23 20:59 12.5 mg BID TIM Administration
[2023-08-09 08:38] LABS: Albumin Level 3.8 gm/dl (3.4-5.0); Bilirubin Direct 0.4 mg/dl (0-0.2); Bilirubin,Total 2.3 mg/dl (0.2-1.0); Total Protein 6.3 gm/dl (6.0-8.3)
[2023-08-09] MEDS: INSULIN ASPART PER UNIT CHARGE SC SCH ×4 (08:46→20:11)
[2023-08-09] MEDS ORDERED: PIPERACILLIN IV STA (08:51)
[2023-08-09] MEDS ORDERED: TAZOBACTAM IV STA (08:51)
[2023-08-09] MEDS ORDERED: DEXTROSE 5% IV STA (08:51)
[2023-08-09] MEDS: bisacodyL 5 MG TABEC PO SCH (08:57)
--- NOTE | 2023-08-09 08:57 | Cardiology Consultation ---
Date of Consultation August 09, 2023 Assessment & Plan (1) Preop cardiovascular exam: (2) S/P CABG x 4: (3) CAD (coronary artery disease) of artery bypass graft: (4) Ischemic cardiomyopathy: Plan 53-year-old male referred for preoperative cardiology consultation after being a dmitted with acute cholecystitis. Patient revascularized in November 2022 as noted below. Patient reports Class I functional capacity, able to achieve 5+ Mets without cardiopulmonary symptoms or limitation. There is evidence of decompensated heart failure, significant valvular heart disease, or significant arrhythmia. Options discussed. Risks explained. Resting echocardiography requested to assess LV systolic function though, in my opinion, there are no overt cardiac contraindications to cholecystectomy. Recommend continuation of aspirin 81 mg/day and beta-fox therapy throughout the perioperative period. When fully recovered post cholecystectomy, recommend consideration for reduced dose beta-fox therapy, switching metoprolol tartrate 12.5 mg twice a day to metoprolol succinate 12.5 mg/day followed by the addition of low dose ACEI/ARB - guideline directed medication therapy for the ischemic cardiomyopathy and type II diabetes mellitus. Continue high intensity statin therapy (atorvastatin 80 mg/day). Supervising Physician Co-Signing Physician Notes Patient seen and examined at the bedside. Feeling well from a cardiovascular perspective. Denies chest pain or unusual shortness of breath. Active and exercises regularly. Normal functional capacity and exercise tolerance per history. Denies any functional imitations. No palpitations, orthopnea, PND, or lower extremity edema. Coronary artery bypass grafting performed in the setting of NSTEMI November 2022. Patient voices concern regarding cardiovascular surgical risk. Offers no other concerns/complaints. PE: VSS. Gen: NAD, AAO x3. Heart: Regular rhythm, normal S1-S2. No murmur. Lungs: Clear bilateral, no rales, rhonchi, wheeze. Tremors: No edema. A/P: Agree with above PA-C history, physical exam, assessment and plan. Patient describes normal exercise tolerance without anginal symptoms. No recent decompensated heart failure or unstable arrhythmia. No contraindication to cholecystectomy at this time. Plavix may be held prior to surgery. Continue aspirin and beta-fox uninterrupted perioperatively. Preliminary review of bedside echocardiogram demonstrates preserved LV systolic function without significant valvular pathology. No further inpatient cardiac testing or intervention recommended at this time. 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 History of Present Illness Reason for Consultation: CAD, CABGx4, preoperative cardiology consultation Requesting Physician: Bry Attending Physician: Dr. Parvin Recio History of Present Illness Mr. López Marinelli is a very pleasant 53-year-old male who is being seen at the request of Dr. Blum, for preoperative cardiology consultation prior to cholecystectomy. Mr. Marinelli carries a history of multivessel coronary artery disease discovered at the time of non-ST segment elevation myocardial infarction. Symptoms associated with the [place] included indigestion and chest pressure. Resting echocardiography at that time revealed mild reduction in LV systolic function, EF 45 to 50% with basal and mid anterolateral wall and basal and mid inferolateral wall abnormalities. Diagnostic cardiac catheterization performed on December 07, 2022 revealed diffuse multivessel coronary artery disease with the culprit lesion being an occluded circumflex with collaterals to the distal vessel through the LAD which was also diffusely diseased. On December 09, 2022 he underwent coronary artery bypass grafting x4, receiving a AMADO to the LAD and vein grafts to the first diagonal, second diagonal, and obtuse marginal by Dr. Sergei Bran. Since the time of his [place]/bypass, patient has made significant lifestyle modification changes with overall improvement. The patient is active to his level preference without symptoms or limitation. He describes push mowing and 1/2 acre of grass regularly without symptom or limitation. He describes walking around the boss ([facility]) while carrying a 40 pound backpack without cardiopulmonary symptoms. Patient admitted to [facility] on August 08, 2023 with acute cholecystitis. Patient pain-free overnight. Admission EKG revealed sinus bradycardia with a ventricular rate of 52 bpm with occasional premature ventricular complexes with poor R wave progression. EKG this morning reveals sinus bradycardia at 48 bpm. High-sensitivity troponin normal at 6.7 pg/mL. Chest x-ray without acute process. White blood cell count is normal, 4.96. H&H this morning were 13.6 and 38.1. Platelet count was normal at 194 K. Creatinine normal at 0.81 mg/deciliter. LDL cholesterol 59 mg/deciliter on August 09, 2023. Hemoglobin A1c 6.1% on August 09, 2023 Past Medical and Surgical History: Multivessel coronary artery disease November 2022 NSTEMI Ischemic cardiomyopathy, EF 45 to 50% Status post December 09, 2022 CABG x4 with a AMADO to the LAD and vein grafts to the first diagonal, second diagonal, and obtuse marginal Hypertension Dyslipidemia Type 2 diabetes mellitus Pulmonary nodule Umbilical hernia Family History: Father with CAD, [place]. Mother with lung cancer. Siblings without cardiac issues. Social History: Reformed tobacco user having smoked 1.5 packs/day x 40 years, quitting at the time of [place], December 07, 2022. Alcohol: 6-8 beers 1 night per week. + Marijuana. Employment: Sales. 4 children. Girlfriend. Lives in [place], [place] Allergies Allergy/AdvReac Type Severity Reaction Status Date / Time No Known Allergies Allergy Unverified 03/12/13 17:14 Home Medications Medication Instructions Recorded Confirmed Type aspirin 81 mg tablet,delayed 81 mg PO DAILY 08/08/23 08/08/23 History release atorvastatin 80 mg tablet 80 mg PO HS 08/08/23 08/08/23 History clopidogrel 75 mg tablet 75 mg PO DAILY 08/08/23 08/08/23 History metformin 500 mg tablet 1,000 mg PO QAM 08/08/23 08/08/23 History metformin 500 mg tablet 500 mg PO QPM 08/08/23 08/08/23 History metoprolol tartrate 25 mg tablet 12.5 mg PO BID 08/08/23 08/08/23 History Patient History Medical History Former heavy tobacco smoker Myocardial Infarction Surgical History History of cardiac cath History of coronary artery bypass graft Social History Smoking Status: Former smoker Second Hand Exposure: No; Do You Dip or Chew Tobacco: No; Tobacco Cessation Education Requested by Patient: No Hx Alcohol Use: Yes Alcohol type: beer Hx Substance Use: Yes Last Used Substance: Days (ago) Last Used Substance Other:: x1 a week on fridays Preferred Language: Czech Communication Ability: Effective 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 HEENT: No amaurosis fugax. Pulmonary: Se above. Cardiac: See above. GI/Abd: No dysphagia. No melana or hematochezia. Denies liver or kidney problems. Vascular: No history of significant carotid disease, AAA, or claudication Hematologic: On ASA and Clopidogrel. No abnormal bleeding. Musculoskeletal: Negative. Skin: No rash. Neurologic: No history of TIA, CVA, or seizure. Endocrine: T2DM diagnosed in 2022. No thyroid problems. Complete Review of Systems is as stated above, negative, or noncontributory. Physical Exam Physical Exam: General: A&Ox3. NAD. HENT: Normocephalic. Atraumatic. Eyes: PER. Conjunctiva pink, sclera clear. Neck: No carotid bruits. No JVD. No HJR. Heart: RRR. No murmur. No rub. No gallop. PMI is nondisplaced. Lungs: Clear to auscultation. Abdomen: +BS. Soft. Nontender. No masses or organomegaly. Extremities: Endoscopic vein harvest sites (2) on the left lower extremity. No clubbing, cyanosis, or edema. Limited neurological examination is without focal deficits. Pulses: radial=2/4, posterior tibial=2/4. Results & Data Vital Signs (Past 12 Hours) Vital Signs Temp Pulse Pulse Resp BP BP Pulse Ox 08/09/23 08:09 36.6 C 67 20 125/77 94 08/09/23 04:16 72 08/09/23 04:08 36.6 C 61 18 123/77 95 08/09/23 03:30 65 12 08/09/23 03:00 61 14 08/09/23 02:30 59 L 14 08/09/23 02:00 60 16 08/09/23 01:30 61 16 08/09/23 01:00 56 L 12 08/09/23 00:30 48 L 11 L 08/09/23 00:00 51 L 20 08/08/23 23:40 137/93 08/08/23 23:40 47 L 12 96 08/08/23 23:30 60 18 08/08/23 23:00 50 L 13 08/08/23 22:30 60 18 08/08/23 22:13 54 L 14 09/12/23 22:12 57 L O2 Del Method 08/09/23 08:09 Room Air 08/09/23 04:16 08/09/23 04:08 Room Air 08/09/23 03:30 08/09/23 03:00 08/09/23 02:30 08/09/23 02:00 08/09/23 01:30 08/09/23 01:00 08/09/23 00:30 08/09/23 00:00 08/08/23 23:40 08/08/23 23:40 08/08/23 23:30 08/08/23 23:00 08/08/23 22:30 08/08/23 22:13 08/08/23 22:12 Laboratory Results Cardiac Enzymes 08/08/23 08/09/23 Range/Units 11:30 06:07 AST 31 24 (13-39) U/L Troponin I High Sens 6.7 (0-20) pg/ml Coagulation 08/08/23 Range/Units 11:30 PT 10.2 (9.0-12.0) Seconds APTT 24.8 (21.0-31.0) Seconds Lipids 08/09/23 Range/Units 06:07 Triglycerides 59 (0-150) mg/dl Cholesterol 114 (0-200) mg/dl HDL Cholesterol 43 mg/dl Cholesterol/HDL Ratio 2.7 (0-5) CBC 08/08/23 08/09/23 Range/Units 11:30 06:07 WBC 7.71 4.96 (4.8-10.8) K/ul RBC 4.65 L 4.29 L (4.70-6.10) M/uL Hgb 14.7 13.6 L (14.0-18.0) g/dl Hct 41.3 L 38.1 L (42.0-52.0) % Plt Count 229 194 (130-400) K/uL Neut # (Auto) 5.16 (1.40-6.50) K/uL Lymph # (Auto) 1.62 (1.20-3.40) K/uL [place] # (Auto) 0.67 H (0.11-0.59) K/uL Eos # (Auto) 0.19 (0.00-0.50) K/uL Baso # (Auto) 0.05 (0.00-0.20) K/uL Comprehensive Metabolic Panel 08/08/23 08/09/23 Range/Units 11:30 06:07 Sodium 135 L 139 (136-145) mmol/L Potassium 4.7 4.2 (3.5-5.1) mmol/L Chloride 105 107 (98-107) mmol/L Carbon Dioxide 24 27 (21-32) mmol/L BUN 16 12 (6-23) mg/dl Creatinine 0.85 0.81 (0.6-1.4) mg/dl Glucose 122 H 106 H (70-99(Fasting)) mg/dl Calcium 9.4 8.8 (8.6-10.3) mg/dl Direct Bilirubin 0.4 H (0-0.2) mg/dl AST 31 24 (13-39) U/L ALT 40 34 (7-52) U/L Alkaline Phosphatase 74 57 (34-104) U/L Total Protein 7.4 6.3 (6.0-8.3) gm/dl Albumin 4.5 3.8 (3.4-5.0) gm/dl Intake and Output 08/08/23 08/09/23 08/09/23 22:59 06:59 14:59 Intake Total 1000 / 1620 60 / 1620 60 / 60 Balance 1000 / 1620 60 / 1620 60 / 60 Intake: IV 1000 / 1620 60 / 1620 60 / 60 Sodium Chloride 0.9% 1,000 ml @ 1000 / 1000 125 mls/hr IV .Q8H [facility] Rx#: [id number] cefOXitin 2,000 mg In Dextrose 60 / 60 60 / 60 5% 50 ml @ 100 mls/hr IV Q6H [facility] Rx#:[id number] Other: Other Intake Source NPO Weight 82.2 kg Weight Measurement Method Standing Scale Diagnostic Findings Telemetry: Sinus bradycardia into the 40s overnight, currently 56 bpm. No pauses. Occasional ectopy in singles. No atrial fibrillation/flutter.
--- NOTE | 2023-08-09 09:56 | Electrocardiogram Report ---
Test Reason : Blood Pressure : / mmHG Vent. Rate : 048 BPM Atrial Rate : 048 BPM P-R Int : 164 ms QRS Dur : 098 ms QT Int : 472 ms P-R-T Axes : 043 049 080 degrees QTc Int : 421 ms Sinus bradycardia Otherwise normal ECG When compared with ECG of 08-AUG-2023 11:18, Premature ventricular complexes are no longer Present Confirmed by Cecilio Soliman ([id number]) on 08/09/2023 9:56:27 AM Referred By: REFERRED SELF Confirmed By:Cecilio Soliman
[2023-08-09] MEDS: METOPROLOL TARTRATE 25 MG TAB PO SCH ×2 (10:29→20:10)
[2023-08-09] MEDS: ASPIRIN 81 MG ECTAB PO SCH (10:30)
--- NOTE | 2023-08-09 11:07 | Gastrointestinal Consultation ---
Date of Consultation August 09, 2023 Assessment & Plan (1) Acute cholecystitis: 53 year old male with history of CAD s/p CABG x4, ischemic cardiomyopathy, NSTEMI in November 2022, HLD, HTN, former cigarette smoker quit in November 2022, T2DM admitted through the ED with abd pain - acute cholecystitis - GI asked to evaluate for elevated Tbili, 2.3. All indirect. May proceed with MRCP to clear the bile duct Cholecystitis management per general surgery Thank you for allowing us to participate in the care of this patient. Please call with any acute changes, questions or concerns. Please see addendum below with additional recommendation from my supervising physician. Supervising Physician Co-Signing Physician Notes I performed a history and physical examination of the patient today, including specifically on physical exam - soft abdomen. I have discussed the patient's management with the advanced practitioner. Please refer to the nurse practitioner's note for the documented findings and plan of care. Feels fine and totally asymptomatic today. 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 Recommend: Management of suspected cholecystitis per surgery team. Consider MRCP however this is very low probability for choledocholithiasis and an IOC can obtained instead. Recall GI if needed. History of Present Illness Reason for Consultation: tbili 2.3, acte kayley Requesting Physician: Hemal Attending Physician: Parvin Recio MD History of Present Illness 53 year old male with history of CAD s/p CABG x4, ischemic cardiomyopathy, NSTEMI in November 2022, HLD, HTN, former cigarette smoker quit in November 2022, T2DM admitted through the ED with abd pain - acute cholecystitis. GI asked to evaluate for elevated Tbili. Pt was seen and evaluated, chart reviewed. Notes he is feeling great. Pain resolved. No abd pain. No nausea, vomiting. Is NPO but notes he is hungry. Denies black or bloody stools, diarrhea or constipation. No fever, chills, CP, SOB. Tbili 1.2 --> 1.8 --> 2.3 DB 0.5 AST/ALT/ALKP normal CTAP 2022: A 3 mm stone within the cystic duct with pericholecystic inflammatory change. Therefore, these findings are consistent with an acute cholecystitis. Surgical consultation recommended. Minimal fat stranding deep to the tiny fat- containing umbilical hernia. This could be chronic or represent a developing small metal infarct.. No bowel wall thickening or obstruction. Normal appendix. A 3 mm indeterminate pulmonary nodule within the left lower lobe. Allergies Allergy/AdvReac Type Severity Reaction Status Date / Time No Known Allergies Allergy Unverified 03/12/13 17:14 Home Medications Medication Instructions Recorded Confirmed Type aspirin 81 mg tablet,delayed 81 mg PO DAILY 08/08/23 08/08/23 History release atorvastatin 80 mg tablet 80 mg PO HS 08/08/23 08/08/23 History clopidogrel 75 mg tablet 75 mg PO DAILY 08/08/23 08/08/23 History metformin 500 mg tablet 1,000 mg PO QAM 08/08/23 08/08/23 History metformin 500 mg tablet 500 mg PO QPM 08/08/23 08/08/23 History metoprolol tartrate 25 mg tablet 12.5 mg PO BID 08/08/23 08/08/23 History Patient History Medical History Former heavy tobacco smoker Myocardial Infarction Surgical History History of cardiac cath History of coronary artery bypass graft Social History Smoking Status: Former smoker Second Hand Exposure: No; Do You Dip or Chew Tobacco: No; Tobacco Cessation Education Requested by Patient: No Hx Alcohol Use: Yes Alcohol type: beer Hx Substance Use: Yes Last Used Substance: Days (ago) Last Used Substance Other:: x1 a week on fridays Preferred Language: Citizen Of The [place] Communication Ability: Effective Key Cutter Required: No Beliefs That Will Affect Care: None Current Living Situation: Alone 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 Other Information That Helps Us Care for You: No Feels Safe at Home: Yes Safety Concerns: Feels Safe At This Time Assistive Devices: None Review of Systems Review of Systems: All systems reviewed & are unremarkable except as noted in HPI & below Physical Exam Constitutional: WD/WN, vitals as above Respiratory: normal respiratory effort, lungs clear to auscultation Cardiovascular: Rate/Rhythm: regular rate and regular rhythm Gastrointestinal (Abdomen): normal bowel sounds, soft, nontender, no hepatosplenomegaly Skin: no rashes, warm and dry Results & Data Vital Signs (Past 12 Hours) Vital Signs Temp Pulse Pulse Resp BP BP Pulse Ox 08/09/23 10:46 67 08/09/23 08:09 36.6 C 67 20 125/77 94 08/09/23 04:16 72 08/09/23 04:08 36.6 C 61 18 123/77 95 08/09/23 03:30 65 12 08/09/23 03:00 61 14 08/09/23 02:30 59 L 14 08/09/23 02:00 60 16 08/09/23 01:30 61 16 08/09/23 01:00 56 L 12 08/09/23 00:30 48 L 11 L 08/09/23 00:00 51 L 20 08/08/23 23:40 137/93 08/08/23 23:40 47 L 12 96 08/08/23 23:30 60 18 O2 Del Method 08/09/23 10:46 08/09/23 08:09 Room Air 08/09/23 04:16 08/09/23 04:08 Room Air 08/09/23 03:30 08/09/23 03:00 08/09/23 02:30 08/09/23 02:00 08/09/23 01:30 08/09/23 01:00 08/09/23 00:30 08/09/23 00:00 08/08/23 23:40 08/08/23 23:40 08/08/23 23:30 Laboratory Results 08/09/23 08/09/23 08/09/23 Range/Units 06:07 06:07 06:07 WBC 4.96 (4.8-10.8) K/ul RBC 4.29 L (4.70-6.10) M/uL Hgb 13.6 L (14.0-18.0) g/dl Hct 38.1 L (42.0-52.0) % MCV 88.8 (80.0-100.0) fL MCH 31.7 (25.0-34.0) pg MCHC 35.7 (32.0-36.0) g/dL RDW Std Deviation 38.4 (36.4-46.3) fL RDW Coeff of Jimmy 12.0 (11.5-14.5) % Plt Count 194 (130-400) K/uL MPV 11.0 (9.4-12.4) fL Immature Gran % (Auto) % Neut % (Auto) % Lymph % (Auto) % [place] % (Auto) % Eos % (Auto) % Baso % (Auto) % Neut # (Auto) (1.40-6.50) K/uL Lymph # (Auto) (1.20-3.40) K/uL [place] # (Auto) (0.11-0.59) K/uL Eos # (Auto) (0.00-0.50) K/uL Baso # (Auto) (0.00-0.20) K/uL Immature Gran # (Auto) (0.01-0.20) K/uL PT (9.0-12.0) Seconds INR (0.9-1.1) APTT (21.0-31.0) Seconds PTT Ratio Sodium 139 (136-145) mmol/L Potassium 4.2 (3.5-5.1) mmol/L Chloride 107 (98-107) mmol/L Carbon Dioxide 27 (21-32) mmol/L Anion Gap 5 (3-11) BUN 12 (6-23) mg/dl Creatinine 0.81 (0.6-1.4) mg/dl Est Cr Clr Drug Dosing 101.7 Est GFR ( Amer) 116.0 ml/min Est GFR (Non-Af Amer) 100.1 ml/min BUN/Creatinine Ratio 14.8 (10-20) Glucose 106 H (70-99(Fasting)) mg/dl POC Glucose (70-99) mg/dl Estimat Average Glucose 128 mg/dl Hemoglobin A1c 6.1 H (4.5-5.6) % Calcium 8.8 (8.6-10.3) mg/dl Total Bilirubin 2.3 H (0.2-1.0) mg/dl Direct Bilirubin 0.4 H (0-0.2) mg/dl AST 24 (13-39) U/L ALT 34 (7-52) U/L Alkaline Phosphatase 57 (34-104) U/L Troponin I High Sens (0-20) pg/ml Total Protein 6.3 (6.0-8.3) gm/dl Albumin 3.8 (3.4-5.0) gm/dl Globulin (2.5-4.0) gm/dl Albumin/Globulin Ratio (0.9-2) Triglycerides 59 (0-150) mg/dl Cholesterol 114 (0-200) mg/dl LDL Cholesterol, Calc 59 mg/dl VLDL Cholesterol, Calc 12 (0-30) mg/dl HDL Cholesterol 43 mg/dl Cholesterol/HDL Ratio 2.7 (0-5) Lipase (11-82) U/L Urine Color Urine Appearance (Clear) Urine pH (4.5-7.5) Ur Specific Bronson (1.000-1.030) Urine Protein (Negative) Urine Glucose (UA) (Negative) Urine Ketones (Negative) Urine Blood (Negative) Urine Nitrite (Negative) Urine Bilirubin (Negative) Urine Urobilinogen (Negative) Ur Leukocyte Esterase (Negative) 08/09/23 08/08/23 08/08/23 Range/Units 04:36 20:09 16:10 WBC (4.8-10.8) K/ul RBC (4.70-6.10) M/uL Hgb (14.0-18.0) g/dl Hct (42.0-52.0) % MCV (80.0-100.0) fL MCH (25.0-34.0) pg MCHC (32.0-36.0) g/dL RDW Std Deviation (36.4-46.3) fL RDW Coeff of Jimmy (11.5-14.5) % Plt Count (130-400) K/uL MPV (9.4-12.4) fL Immature Gran % (Auto) % Neut % (Auto) % Lymph % (Auto) % [place] % (Auto) % Eos % (Auto) % Baso % (Auto) % Neut # (Auto) (1.40-6.50) K/uL Lymph # (Auto) (1.20-3.40) K/uL [place] # (Auto) (0.11-0.59) K/uL Eos # (Auto) (0.00-0.50) K/uL Baso # (Auto) (0.00-0.20) K/uL Immature Gran # (Auto) (0.01-0.20) K/uL PT (9.0-12.0) Seconds INR (0.9-1.1) APTT (21.0-31.0) Seconds PTT Ratio Sodium (136-145) mmol/L Potassium (3.5-5.1) mmol/L Chloride (98-107) mmol/L Carbon Dioxide (21-32) mmol/L Anion Gap (3-11) BUN (6-23) mg/dl Creatinine (0.6-1.4) mg/dl Est Cr Clr Drug Dosing Est GFR ( Amer) ml/min Est GFR (Non-Af Amer) ml/min BUN/Creatinine Ratio (10-20) Glucose (70-99(Fasting)) mg/dl POC Glucose 102 H 84 (70-99) mg/dl Estimat Average Glucose mg/dl Hemoglobin A1c (4.5-5.6) % Calcium (8.6-10.3) mg/dl Total Bilirubin (0.2-1.0) mg/dl Direct Bilirubin (0-0.2) mg/dl AST (13-39) U/L ALT (7-52) U/L Alkaline Phosphatase (34-104) U/L Troponin I High Sens (0-20) pg/ml Total Protein (6.0-8.3) gm/dl Albumin (3.4-5.0) gm/dl Globulin (2.5-4.0) gm/dl Albumin/Globulin Ratio (0.9-2) Triglycerides (0-150) mg/dl Cholesterol (0-200) mg/dl LDL Cholesterol, Calc mg/dl VLDL Cholesterol, Calc (0-30) mg/dl HDL Cholesterol mg/dl Cholesterol/HDL Ratio (0-5) Lipase (11-82) U/L Urine Color Dark Yellow Urine Appearance Clear (Clear) Urine pH 6.0 (4.5-7.5) Ur Specific Bronson 1.024 (1.000-1.030) Urine Protein Negative (Negative) Urine Glucose (UA) Negative (Negative) Urine Ketones Negative (Negative) Urine Blood Negative (Negative) Urine Nitrite Negative (Negative) Urine Bilirubin Negative (Negative) Urine Urobilinogen Negative (Negative) Ur Leukocyte Esterase Negative (Negative) 08/08/23 08/08/23 08/08/23 Range/Units 11:30 11:30 11:30 WBC 7.71 (4.8-10.8) K/ul RBC 4.65 L (4.70-6.10) M/uL Hgb 14.7 (14.0-18.0) g/dl Hct 41.3 L (42.0-52.0) % MCV 88.8 (80.0-100.0) fL MCH 31.6 (25.0-34.0) pg MCHC 35.6 (32.0-36.0) g/dL RDW Std Deviation 38.7 (36.4-46.3) fL RDW Coeff of Jimmy 12.0 (11.5-14.5) % Plt Count 229 (130-400) K/uL MPV 10.8 (9.4-12.4) fL Immature Gran % (Auto) 0.3 % Neut % (Auto) 66.9 % Lymph % (Auto) 21.0 % Teton % (Auto) 8.7 % Eos % (Auto) 2.5 % Baso % (Auto) 0.6 % Neut # (Auto) 5.16 (1.40-6.50) K/uL Lymph # (Auto) 1.62 (1.20-3.40) K/uL [place] # (Auto) 0.67 H (0.11-0.59) K/uL Eos # (Auto) 0.19 (0.00-0.50) K/uL Baso # (Auto) 0.05 (0.00-0.20) K/uL Immature Gran # (Auto) 0.02 (0.01-0.20) K/uL PT 10.2 (9.0-12.0) Seconds INR 0.9 (0.9-1.1) APTT 24.8 (21.0-31.0) Seconds PTT Ratio 0.9 Sodium 135 L (136-145) mmol/L Potassium 4.7 (3.5-5.1) mmol/L Chloride 105 (98-107) mmol/L Carbon Dioxide 24 (21-32) mmol/L Anion Gap 6 (3-11) BUN 16 (6-23) mg/dl Creatinine 0.85 (0.6-1.4) mg/dl Est Cr Clr Drug Dosing Not Reportable Est GFR ( Amer) 113.7 ml/min Est GFR (Non-Af Amer) 98.1 ml/min BUN/Creatinine Ratio 18.8 (10-20) Glucose 122 H (70-99(Fasting)) mg/dl POC Glucose (70-99) mg/dl Estimat Average Glucose mg/dl Hemoglobin A1c (4.5-5.6) % Calcium 9.4 (8.6-10.3) mg/dl Total Bilirubin 1.8 H (0.2-1.0) mg/dl Direct Bilirubin (0-0.2) mg/dl AST 31 (13-39) U/L ALT 40 (7-52) U/L Alkaline Phosphatase 74 (34-104) U/L Troponin I High Sens 6.7 (0-20) pg/ml Total Protein 7.4 (6.0-8.3) gm/dl Albumin 4.5 (3.4-5.0) gm/dl Globulin 2.9 (2.5-4.0) gm/dl Albumin/Globulin Ratio 1.6 (0.9-2) Triglycerides (0-150) mg/dl Cholesterol (0-200) mg/dl LDL Cholesterol, Calc mg/dl VLDL Cholesterol, Calc (0-30) mg/dl HDL Cholesterol mg/dl Cholesterol/HDL Ratio (0-5) Lipase 69 (11-82) U/L Urine Color Urine Appearance (Clear) Urine pH (4.5-7.5) Ur Specific Bronson (1.000-1.030) Urine Protein (Negative) Urine Glucose (UA) (Negative) Urine Ketones (Negative) Urine Blood (Negative) Urine Nitrite (Negative) Urine Bilirubin (Negative) Urine Urobilinogen (Negative) Ur Leukocyte Esterase (Negative)
[2023-08-09] MEDS: PIPERACILLIN/TAZOBACTAM 4.5 GM in DEXTROSE 5% MINI-B 100 ML IV SCH ×2 (14:44→21:20)
--- NOTE | 2023-08-09 14:56 | Surgery Progress Note ---
Date of Service August 09, 2023 Assessment & Plan (1) Acute cholecystitis: (2) S/P CABG x 4: (3) DM II (diabetes mellitus, type II), controlled: Plan 53-year-old gentleman, CABG x4 8 months ago, on Plavix, presents with what appears to be acute cholecystitis on CT scan. avss t. bili up to 2.3 from 1.8, lfts and alk phos normal abdominal pain completely resolved Plan: Gi consulted, recommended MRCP however patient severely claustrophobic and unable to do MRI can repeat am labs and if t. bili decreasing can likely advance diet while continuing antibiotics continue medical management Dr. Cosme has seen and examined patient, agrees with above. Admission and Anticipated Discharge Date Admission Date: August 08, 2023 Supervising Physician Co-Signing Physician Notes I have seen and examined the patient personally and agree with the above assessment plan. His abdomen is soft, nontender, nondistended. Although his T. bili is elevated, his pain has completely resolved. We will advance diet to clears, and recheck his labs in the morning. Continue antibiotics for now. We will continue to follow. Subjective feeing good today RUQ abdominal pain has completely resolved no n,v no fevers or chills Physical Exam Constitutional: WD/WN, vitals as above cooperative and comfortable; no acute distress and not ill appearing Gastrointestinal (Abdomen): Inspection/Auscultation: abdomen normal to inspection; abdomen not distended Percussion/Palpation: abdomen soft; abdomen nontender, no guarding, abdomen not rigid and abdomen not firm Skin: no rashes, warm and dry Psychiatric: A+Ox3, euthymic affect Results & Data Vital Signs (Past 12 Hours) Vital Signs Temp Pulse Pulse Resp BP Pulse Ox O2 Del Method 08/09/23 12:00 36.8 C 67 18 136/65 98 Room Air 08/09/23 10:46 67 08/09/23 08:09 36.6 C 67 20 125/77 94 Room Air 08/09/23 04:16 72 08/09/23 04:08 36.6 C 61 18 123/77 95 Room Air 08/09/23 03:30 65 12 08/09/23 03:00 61 14 Laboratory Results 08/09/23 08/09/23 08/09/23 Range/Units 11:52 06:07 06:07 WBC (4.8-10.8) K/ul RBC (4.70-6.10) M/uL Hgb (14.0-18.0) g/dl Hct (42.0-52.0) % MCV (80.0-100.0) fL MCH (25.0-34.0) pg MCHC (32.0-36.0) g/dL RDW Std Deviation (36.4-46.3) fL RDW Coeff of Jimmy (11.5-14.5) % Plt Count (130-400) K/uL MPV (9.4-12.4) fL Sodium 139 (136-145) mmol/L Potassium 4.2 (3.5-5.1) mmol/L Chloride 107 (98-107) mmol/L Carbon Dioxide 27 (21-32) mmol/L Anion Gap 5 (3-11) BUN 12 (6-23) mg/dl Creatinine 0.81 (0.6-1.4) mg/dl Est Cr Clr Drug Dosing 101.7 ml/min Est GFR ( Amer) 116.0 ml/min Est GFR (Non-Af Amer) 100.1 ml/min BUN/Creatinine Ratio 14.8 (10-20) Glucose 106 H (70-99(Fasting)) mg/dl POC Glucose 103 H (70-99) mg/dl Estimat Average Glucose 128 mg/dl Hemoglobin A1c 6.1 H (4.5-5.6) % Calcium 8.8 (8.6-10.3) mg/dl Total Bilirubin 2.3 H (0.2-1.0) mg/dl Direct Bilirubin 0.4 H (0-0.2) mg/dl AST 24 (13-39) U/L ALT 34 (7-52) U/L Alkaline Phosphatase 57 (34-104) U/L Total Protein 6.3 (6.0-8.3) gm/dl Albumin 3.8 (3.4-5.0) gm/dl Triglycerides 59 (0-150) mg/dl Cholesterol 114 (0-200) mg/dl LDL Cholesterol, Calc 59 mg/dl VLDL Cholesterol, Calc 12 (0-30) mg/dl HDL Cholesterol 43 mg/dl Cholesterol/HDL Ratio 2.7 (0-5) Urine Color Urine Appearance (Clear) Urine pH (4.5-7.5) Ur Specific Eden (1.000-1.030) Urine Protein (Negative) Urine Glucose (UA) (Negative) Urine Ketones (Negative) Urine Blood (Negative) Urine Nitrite (Negative) Urine Bilirubin (Negative) Urine Urobilinogen (Negative) Ur Leukocyte Esterase (Negative) 08/09/23 08/09/23 08/08/23 Range/Units 06:07 04:36 20:09 WBC 4.96 (4.8-10.8) K/ul RBC 4.29 L (4.70-6.10) M/uL Hgb 13.6 L (14.0-18.0) g/dl Hct 38.1 L (42.0-52.0) % MCV 88.8 (80.0-100.0) fL MCH 31.7 (25.0-34.0) pg MCHC 35.7 (32.0-36.0) g/dL RDW Std Deviation 38.4 (36.4-46.3) fL RDW Coeff of Jimmy 12.0 (11.5-14.5) % Plt Count 194 (130-400) K/uL MPV 11.0 (9.4-12.4) fL Sodium (136-145) mmol/L Potassium (3.5-5.1) mmol/L Chloride (98-107) mmol/L Carbon Dioxide (21-32) mmol/L Anion Gap (3-11) BUN (6-23) mg/dl Creatinine (0.6-1.4) mg/dl Est Cr Clr Drug Dosing ml/min Est GFR ( Amer) ml/min Est GFR (Non-Af Amer) ml/min BUN/Creatinine Ratio (10-20) Glucose (70-99(Fasting)) mg/dl POC Glucose 102 H 84 (70-99) mg/dl Estimat Average Glucose mg/dl Hemoglobin A1c (4.5-5.6) % Calcium (8.6-10.3) mg/dl Total Bilirubin (0.2-1.0) mg/dl Direct Bilirubin (0-0.2) mg/dl AST (13-39) U/L ALT (7-52) U/L Alkaline Phosphatase (34-104) U/L Total Protein (6.0-8.3) gm/dl Albumin (3.4-5.0) gm/dl Triglycerides (0-150) mg/dl Cholesterol (0-200) mg/dl LDL Cholesterol, Calc mg/dl VLDL Cholesterol, Calc (0-30) mg/dl HDL Cholesterol mg/dl Cholesterol/HDL Ratio (0-5) Urine Color Urine Appearance (Clear) Urine pH (4.5-7.5) Ur Specific [place] (1.000-1.030) Urine Protein (Negative) Urine Glucose (UA) (Negative) Urine Ketones (Negative) Urine Blood (Negative) Urine Nitrite (Negative) Urine Bilirubin (Negative) Urine Urobilinogen (Negative) Ur Leukocyte Esterase (Negative) 08/08/23 Range/Units 16:10 WBC (4.8-10.8) K/ul RBC (4.70-6.10) M/uL Hgb (14.0-18.0) g/dl Hct (42.0-52.0) % MCV (80.0-100.0) fL MCH (25.0-34.0) pg MCHC (32.0-36.0) g/dL RDW Std Deviation (36.4-46.3) fL RDW Coeff of Jimmy (11.5-14.5) % Plt Count (130-400) K/uL MPV (9.4-12.4) fL Sodium (136-145) mmol/L Potassium (3.5-5.1) mmol/L Chloride (98-107) mmol/L Carbon Dioxide (21-32) mmol/L Anion Gap (3-11) BUN (6-23) mg/dl Creatinine (0.6-1.4) mg/dl Est Cr Clr Drug Dosing ml/min Est GFR ( Amer) ml/min Est GFR (Non-Af Amer) ml/min BUN/Creatinine Ratio (10-20) Glucose (70-99(Fasting)) mg/dl POC Glucose (70-99) mg/dl Estimat Average Glucose mg/dl Hemoglobin A1c (4.5-5.6) % Calcium (8.6-10.3) mg/dl Total Bilirubin (0.2-1.0) mg/dl Direct Bilirubin (0-0.2) mg/dl AST (13-39) U/L ALT (7-52) U/L Alkaline Phosphatase (34-104) U/L Total Protein (6.0-8.3) gm/dl Albumin (3.4-5.0) gm/dl Triglycerides (0-150) mg/dl Cholesterol (0-200) mg/dl LDL Cholesterol, Calc mg/dl VLDL Cholesterol, Calc (0-30) mg/dl HDL Cholesterol mg/dl Cholesterol/HDL Ratio (0-5) Urine Color Dark Yellow Urine Appearance Clear (Clear) Urine pH 6.0 (4.5-7.5) Ur Specific Eden 1.024 (1.000-1.030) Urine Protein Negative (Negative) Urine Glucose (UA) Negative (Negative) Urine Ketones Negative (Negative) Urine Blood Negative (Negative) Urine Nitrite Negative (Negative) Urine Bilirubin Negative (Negative) Urine Urobilinogen Negative (Negative) Ur Leukocyte Esterase Negative (Negative)
[2023-08-09] MEDS: ATORVASTATIN 40 MG TAB PO SCH (20:10)
[2023-08-10] MEDS: PIPERACILLIN/TAZOBACTAM 4.5 GM in DEXTROSE 5% MINI-B 100 ML IV SCH (05:41)
[2023-08-10 06:25] LABS: Albumin Level 3.8 gm/dl (3.4-5.0); Bilirubin Direct 0.4 mg/dl (0-0.2); Bilirubin,Total 2.2 mg/dl (0.2-1.0); Total Protein 6.3 gm/dl (6.0-8.3)
[2023-08-10 07:49] LABS: Calcium 8.8 mg/dl (8.6-10.3); Potassium 4.1 mmol/L (3.5-5.1)
[2023-08-10 07:55] LABS: Creatinine Clr Calc Pharmacy 87.6 ml/min; Est GFR (African American) 105.4 ml/min; Est GFR (Non-African American) 90.9 ml/min
[2023-08-10] MEDS: METOPROLOL TARTRATE 25 MG TAB PO SCH (09:01)
[2023-08-10] MEDS: ASPIRIN 81 MG ECTAB PO SCH (09:03)
[2023-08-10] MEDS: INSULIN ASPART PER UNIT CHARGE SC SCH ×2 (09:40→12:35)
[2023-08-10] MEDS: bisacodyL 5 MG TABEC PO SCH (09:53)
--- NOTE | 2023-08-10 12:43 | Surgery Progress Note ---
Date of Service August 10, 2023 Assessment & Plan (1) Acute cholecystitis: (2) S/P CABG x 4: (3) DM II (diabetes mellitus, type II), controlled: Plan 53-year-old gentleman, CABG x4 8 months ago, on Plavix, presents with what appears to be acute cholecystitis on CT scan. avss t. bili improving to 2.2, lfts and alk wnl resolution of all symptoms Plan: okay for discharge 5 days of oral abx follow-up with dr. cosme in 3 weeks , will discuss future cholecystectomy Dr. Cosme has seen and examined patient, agrees with above. Admission and Anticipated Discharge Date Admission Date: August 08, 2023 Subjective feeling great no abdominal pain since 8 pm Monday night no n,v tolerating diet without abdominal pain , n, v ready to go home Physical Exam Constitutional: WD/WN, vitals as above cooperative and comfortable; no acute distress and not ill appearing Gastrointestinal (Abdomen): Inspection/Auscultation: abdomen normal to inspection; abdomen not distended Percussion/Palpation: abdomen soft; abdomen nontender, no guarding and abdomen not rigid Skin: no rashes, warm and dry no jaundice Psychiatric: A+Ox3, euthymic affect Results & Data Vital Signs (Past 12 Hours) Vital Signs Temp Pulse Pulse Resp BP BP Pulse Ox 08/10/23 12:06 37.1 C 53 L 19 121/73 126/74 96 08/10/23 11:28 37.1 C 53 L 19 126/74 96 08/10/23 07:58 45 L 08/10/23 07:22 36.6 C 64 18 121/73 97 08/10/23 03:11 36.8 C 49 L 18 117/65 97 O2 Del Method 08/10/23 12:06 08/10/23 11:28 Room Air 08/10/23 07:58 08/10/23 07:22 Room Air 08/10/23 03:11 Room Air Laboratory Results 08/10/23 08/09/23 08/09/23 Range/Units 05:41 19:51 17:16 Sodium 140 (136-145) mmol/L Potassium 4.1 (3.5-5.1) mmol/L Chloride 109 H (98-107) mmol/L Carbon Dioxide 25 (21-32) mmol/L Anion Gap 6 (3-11) BUN 15 (6-23) mg/dl Creatinine 0.94 (0.6-1.4) mg/dl Est Cr Clr Drug Dosing 87.6 ml/min Est GFR ( Amer) 105.4 ml/min Est GFR (Non-Af Amer) 90.9 ml/min BUN/Creatinine Ratio 16.0 (10-20) Glucose 106 H (70-99(Fasting)) mg/dl POC Glucose 108 H 134 H (70-99) mg/dl Calcium 8.8 (8.6-10.3) mg/dl Total Bilirubin 2.2 H (0.2-1.0) mg/dl Direct Bilirubin 0.4 H (0-0.2) mg/dl AST 24 (13-39) U/L ALT 31 (7-52) U/L Alkaline Phosphatase 55 (34-104) U/L Total Protein 6.3 (6.0-8.3) gm/dl Albumin 3.8 (3.4-5.0) gm/dl
--- NOTE | 2023-08-10 13:17 | Discharge Summary ---
Discharge Summary Date of Service August 10, 2023 Notes For Next Care Provider Medication Changes From Visit -Transitioned to Metoprolol tartrate 12.5 BID to Metoprolol Succinate 12.5mg daily due to asymptomatic bradycardia and benefit in ICM -Started Levoquin 500 mg daily x 5 days for prophylaxis iso cholecystitis -Started Flagyl 500mg BID x 5 days for prophylaxis iso cholecystitis Admission HPI Per Admitting Provider This is a 53 male with PMHx of CAD status post CABG x4, ischemic cardiomyopathy, history of NSTEMI in November 2022, HLD, HTN, former cigarette smoker quit in November 2022, DM type II, who presents to the hospital with acute onset of abdominal pain. Patient states that this started around 10 AM this morning. He had eaten a banana, coffee for breakfast this morning and felt pain initially in his lower abdomen extending up and going straight into his back. He had 1 bowel movement this morning which was normal, no blood and thought the pain would be relieved however it was not. Denies any fevers, chills or sweats. Due to progressive pain worsening to an 8/10 he proceeded to the ER. He reports taking his morning medications as regularly scheduled. Patient admits that he currently smokes marijuana but only on Monday evenings when he enjoys an alcoholic beverage or 2 and fishes for rivers. His is with him at bedside and supports the history. Now since being here his blood pressure which was initially elevated at 215/100 has come down to 160/90 with pain control and fluids. In regards to cardiac history: Patient underwent CABG x4 at [facility] in [facility] December 07, 2022, follows with Dr. Wilkinson for surgery and sees Dr. Kiran Stoner with cardiology and was last seen there approximately 1 month ago. He has been stable on baby aspirin, Plavix, atorvastatin, and low-dose metoprolol 12.5 twice daily. Due to heart rate in the 50s they have been unable to titrate beta- blockade up. Patient is fairly physically active but does not exercise routinely. He reports that prior to procedure he was not a diabetic and that his A1c at the time of that hospital stay were normal. Since then him has been placed on metformin 1000 in the morning and 500 in the evening. The evening dose was decreased due to increased diarrhea and loose bowel movements. Patient states he is tolerating this dose well and without any GI effects. CT of the abdomen pelvis shows 3 mm obstructing stone within the cystic duct and pericholecystic inflammatory change, concerning for acute cholecystitis. General surgery has been consulted and has requested medical admission for operative clearance. Admission Exam Per Admitting Provider : General: awake, alert, no apparent distress, + jovial white male Head: Normocephalic, atraumatic ENT: PERRL, EOMI, no pharyngeal exudate, mucous membranes moist Chest: Clear to auscultation, on room air, no adventitious breath sounds Cardiac: Slightly bradycardic with heart rate in the 50s throughout, no murmur, no JVD, normal peripheral pulses, good capillary refill, left leg saphenous grafting is well-healed Abdominal: NABS x 4 quadrants, soft, nondistended, nontender to palpation, no rebound or guarding Extremities: Normal inspection, no peripheral edema or erythema, calfs nontender to palpation Psych: Normal mood and affect Neuro: AAO x 3, strength intact bilaterally and rated 5/5, no motor deficits, speech is clear, no peripheral sensory deficits Principal Dx & Hospital Course #1 = Principal Diagnosis (1) Acute cholecystitis: (2) Hypertension: (3) CAD (coronary artery disease) of artery bypass graft: (4) S/P CABG x 4: (5) HLD (hyperlipidemia): (6) DM II (diabetes mellitus, type II), controlled: Plan Mr. López Marinelli is a 53 year old gentleman with past medical history remarkable for diabetes, hypertension, multivessel obstructive CAD s/p CABG who is admitted due acute gallstone cholecystitis. Patient reports no history of symptoms previously, stating this occurred in a matter of hours. GI recommended MRCP, patient declined due to resolution of symptoms and anxiety. Surgery followed closely while diet advanced. Patient did welll and tolerated diet without return of symptoms. LFTs normalized. Patient cleared for discharged by surgery with plans for 5 days of PO antibiotics and follow up in 2-[address] Cosme. On day of discharge, patient denied any pain, tolerated diet, and endorsed overall resolution of presenting symptoms. #Acute gallstone cholecystitis #Transaminitis -Encouraged low fat diet -Started on 5 days of Levoquin and Flagyl for prophylaxis iso cholecysitis -Follow up with Surgery for monitoring and discussion of future cholecystecomy #Multivessel CAD s/p CABG 2022 #HTN #HLD - Significant cadiac hx s/p RI and CABG x 4 in Nov 2022- Have requested records from [facility] from previous hospitalization Nov 2022 as above. - Followed with Dr. Wilkinson for surgery and sees Dr. Kiran Stoner with cardiology and was last seen there approximately 1 month ago. - Transitioned to Metoprolol Succinate 12.5mg daily -Follow up Cardiology for further GDMT or other adjustments #Diabetes Mellitus Type II - A1C 6.1%, continue home medications and lifestyle modifications Discharge Exam Constitutional WD/WN, vitals as above Respiratory normal respiratory effort, lungs clear to auscultation Cardiovascular RRR, no murmur, no edema Gastrointestinal (Abdomen) normal bowel sounds, soft, nontender, no hepatosplenomegaly Musculoskeletal no cyanosis or clubbing, extremities motor strength 5/5 Updated Medication List Medication Instructions Recorded Confirmed Type aspirin 81 mg tablet,delayed 81 mg PO DAILY 08/08/23 08/08/23 History release atorvastatin 80 mg tablet 80 mg PO HS 08/08/23 08/08/23 History clopidogrel 75 mg tablet 75 mg PO DAILY 08/08/23 08/08/23 History metformin 500 mg tablet 1,000 mg PO QAM 08/08/23 08/08/23 History metformin 500 mg tablet 500 mg PO QPM 08/08/23 08/08/23 History levofloxacin 500 mg tablet 500 mg PO DAILY 5 days #5 tabs 08/10/23 Rx metoprolol succinate 25 mg 12.5 mg PO DAILY #30 tabs 08/10/23 Rx tablet,extended release 24 hr metronidazole 500 mg tablet 500 mg PO BID #10 tabs 08/10/23 Rx Hospital Stay Data Consultations 08/08/23 16:12 ED Decision to Admit Stat 08/08/23 16:39 HIM [Consult Health Information Management] Stat 08/08/23 17:21 Consult Cardiology Routine 08/08/23 17:22 Consult General Surgery Routine 08/09/23 09:40 Consult Gastroenterology Routine Diagnostic Imagining Performed 08/08/23 12:12 CT abd pelvis wo con Stat Pending Results Patient Have Any Pending Studies at Discharge: No Discharge Instructions Given to Patient (Per Discharging Provider) You were admitted for concerns of acute cholecystitis, with noted elevations in liver enzymes. Imaging noted a gallstone was likely cause of acute symptoms. You responded well to conservative management with rest and antibiotics. Given this response and concerns of recent CABG, surgery deferred at this time. You will go home with the following antibiotic regimen: -Levaquin (levofloxacin) 500mg daily until 08/15/2023 -Metronidazole 500mg twice daily until 08/15/2023 -Metoprolol tartrate transitioned to Metoprolol Succinate 12.5mg daily There were no other changes to your medication On CT imagining, there was a nodule noted (A 3 mm indeterminate pulmonary nodule within the left lower lobe). This can often incidental. However, consider discu ssing follow up in 12 months with your primary care provider. Follow up with Dr Cosme to be arranged in 2-4 weeks Total Time Total Time Spent Total Time Spent (In Minutes): 35
== END 2023-08-10 12:40 | disposition home or self-care (01) | DRG 446 ==
LOC: ED 11:03 → EDINP 17:00 → SUATTDRO 17:00 → 2N 08-09 03:55